=== PATIENT | male | born 1965 | race Caucasian/White ===

== ENCOUNTER → 2018-12-31 | Outpatient (CLI) | payer BC, MEDICARE ==
--- NOTE | 2018-12-31 13:58 | XR ---
EXAMINATION TYPE: XR knee complete RT DATE OF EXAM: 12/31/2018 COMPARISON: None HISTORY: Osteoarthritis, pain TECHNIQUE: Three-view right knee FINDINGS: Joint spaces are preserved. No acute fractures or dislocations are evident. No joint effusi on is evident. IMPRESSION: 1. Normal three-view right knee
== END | disposition home or self-care (01) ==
LOC: RADXRMAIN 13:00
PROVIDERS: ATTEND Family Medicine
DX: M17.11 Unilateral primary osteoarthritis, right knee (principal)

== ENCOUNTER 2019-05-25 07:21 | Inpatient (IN) | payer BC, MEDICARE ==
[2019-05-25 07:33] LABS: Glucose,Whole Blood 110 mg/dL (75-99)
--- NOTE | 2019-05-25 07:43 | ED ---
General Adult HPI - General Chief complaint: Neuro Symptoms/Deficit Stated complaint: Poss stroke Time Seen by Provider: 05/25/19 07:27 Source: patient, family, RN notes reviewed Mode of arrival: ambulatory Limitations: no limitations - History of Present Illness Initial comments: Patient is a pleasant 4-year-old male presenting to the emergency department with concerns for possible stroke. Onset of symptoms was sometime yesterday evening. Patient felt generally weak. Patient went to bed around 9 PM. Patient woke up at 6:15 and had expressive aphasia and right-sided facial droop. Patient was unable to walk to the bathroom. states right-sided facial droop has resolved. Patient and state that speech has improved however not completely returned to normal. Patient states he still feels somewhat generally weak. Does not notice weakness worse in any specific area. Patient does have history of previous stroke around 5 years ago with chronic right-sided deficits. Patient feels patient does feel slightly cloudy with his thought process. Patient does have known history of aneurysm that is not operable last evaluated around 5 years ago. - Related Data Home Medications Medication Instructions Recorded Confirmed Aspirin 81 mg PO DAILY 05/25/19 05/25/19 Atorvastatin [Lipitor] 40 mg PO HS 05/25/19 05/25/19 Cetirizine HCl [Zyrtec] 10 mg PO DAILY PRN 05/25/19 05/25/19 Memantine [Namenda] 5 mg PO HS 05/25/19 05/25/19 Allergies Allergy/AdvReac Type Severity Reaction Status Date / Time No Known Allergies Allergy Verified 05/25/19 08:34 Review of Systems ROS Statement: Those systems with pertinent positive or pertinent negative responses have been documented in the HPI. ROS Other: All systems not noted in ROS Statement are negative. Constitutional: Denies: fever Eyes: Denies: eye pain ENT: Denies: ear pain Respiratory: Denies: cough Cardiovascular: Denies: chest pain Endocrine: Denies: fatigue Gastrointestinal: Denies: abdominal pain Genitourinary: Denies: dysuria Musculoskeletal: Denies: back pain Skin: Denies: rash Neurological: Reports: as per HPI, weakness Past Medical History Past Medical History: CVA/TIA, Hyperlipidemia, Hypertension Additional Past Medical History / Comment(s): Hypertension and hypertensive cardiovascular disease, hyperlipidemia, chronic low back pain status post radio frequency ablation of the lumbar spine about a month ago, chronic tobacco use and dependence . History of Any Multi-Drug Resistant Organisms: None Reported Past Surgical History: Appendectomy, Hernia Repair, Orthopedic Surgery Additional Past Surgical History / Comment(s): "SPINAL BLOCK FROM A PRIOR BACK INJURY" HIP SURGERY, BILATERAL FOOT SURGERY, RIGHT ARM CRUSHED", bilateral femur surgery, epidural injection, radiofrequency ablation about a month ago. Past Anesthesia/Blood Transfusion Reactions: No Reported Reaction Past Psychological History: No Psychological Hx Reported Smoking Status: Current every day smoker Past Alcohol Use History: Occasional Past Drug Use History: None Reported - Past Family History Mother Family Medical History: Hypertension (Mother is 72-year-old has history of hypertension as well as hyperthyroidism), Thyroid Disorder Father Family Medical History: No Reported History (Father 75-year-old has no major m edical problems.) Brother(s) Family Medical History: No Reported History (3 brothers no major medical problems.) Sister(s) Family Medical History: No Reported History (3 sisters no major medical problems) Son(s) Family Medical History: No Reported History (Patient has 2 sons no major medical problems) Daughter(s) Family Medical History: No Reported History (1 daughter no major medical problems.) General Exam Limitations: no limitations General appearance: alert, in no apparent distress Head exam: Present: normocephalic Eye exam: Present: normal appearance, PERRL, EOMI. Absent: nystagmus ENT exam: Present: normal oropharynx Neck exam: Present: normal inspection Respiratory exam: Present: normal lung sounds bilaterally Cardiovascular Exam: Present: regular rate, normal rhythm GI/Abdominal exam: Present: soft. Absent: tenderness Extremities exam: Present: normal inspection Neurological exam: Present: alert, oriented X3, CN II-XII intact (Except for decreased sensation right side of the face) Expanded Neurological exam: Present: protecting the airway Speech: Present: expressive aphasia (Mild slurred speech) Cranial nerves: EOM's Intact: Normal, Facial Sensation: Abnormal Right Sensory exam: Upper Extremity Light Touch: Abnormal Right, Lower Extremity Light Touch: Abnormal Right Motor strength exam: RUE: 5, LUE: 5, RLE: 2/1, LLE: 5 Eye Response: (4) open spontaneously Motor Response: (6) obeys commands Verbal Response: (5) oriented Psychiatric exam: Present: normal affect, normal mood Skin exam: Present: normal color Course Vital Signs 05/25/19 07:29 Temperature 97.5 F L Pulse Rate 80 Respiratory 18 Rate Blood Pressure 159/107 O2 Sat by Pulse 92 L Oximetry - Reevaluation(s) Reevaluation #1: 05/25/19 07:40 Patient is not a TPA candidate secondary to onset of symptoms greater than 4.5 hours, in addition patient has improvement of symptoms. 05/25/19 07:[address] Boo who agrees patient is not a TPA candidate 05/25/19 08:43 Case was again discussed with Dr. Boo who did identify AVM CTA. He does recommend MRI with and without contrast as well as EEG and neurology evaluation. He will follow up with patient after he is discharged. Patient reevaluated. Patient and family updated. Case also discussed in detail with Dr. Short, who will admit his patient. EKG Findings - EKG Comments: EKG Findings:: Normal sinus rhythm 75. MT 144. QRS 88. QT 386. QTc 431. Normal axis. Normal QRS. No acute ST change. Medical Decision Making - Lab Data Result diagrams: 05/25/19 07:34 05/25/19 07:34 Lab Results 05/25/19 05/25/19 05/25/19 Range/Units 07:32 07:34 07:34 WBC 7.8 (3.8-10.6) k/uL RBC 5.35 (4.30-5.90) m/uL Hgb 15.8 (13.0-17.5) gm/dL Hct 47.9 (39.0-53.0) % MCV 89.5 (80.0-100.0) fL MCH 29.5 (25.0-35.0) pg MCHC 33.0 (31.0-37.0) g/dL RDW 12.3 (11.5-15.5) % Plt Count 246 (150-450) k/uL Neutrophils % 64 % Lymphocytes % 25 % Monocytes % 5 % Eosinophils % 3 % Basophils % 1 % Neutrophils # 5.0 (1.3-7.7) k/uL Lymphocytes # 1.9 (1.0-4.8) k/uL Monocytes # 0.4 (0-1.0) k/uL Eosinophils # 0.3 (0-0.7) k/uL Basophils # 0.1 (0-0.2) k/uL PT (9.0-12.0) sec INR (<1.2) APTT (22.0-30.0) sec Sodium 143 (137-145) mmol/L Potassium 4.3 (3.5-5.1) mmol/L Chloride 108 H (98-107) mmol/L Carbon Dioxide 26 (22-30) mmol/L Anion Gap 9 mmol/L BUN 18 (9-20) mg/dL Creatinine 0.92 (0.66-1.25) mg/dL Est GFR (CKD-EPI)AfAm >90 (>60 ml/min/1.73 sqM) Est GFR (CKD-EPI)NonAf >90 (>60 ml/min/1.73 sqM) Glucose 111 H (74-99) mg/dL POC Glucose (mg/dL) 110 H (75-99) mg/dL POC Glu Rn Lvn ID Roberto Lopez Calcium 9.4 (8.4-10.2) mg/dL Total Bilirubin 1.3 (0.2-1.3) mg/dL AST 22 (17-59) U/L ALT 19 (4-49) U/L Alkaline Phosphatase 72 (38-126) U/L Troponin I (0.000-0.034) ng/mL Total Protein 7.4 (6.3-8.2) g/dL Albumin 4.5 (3.5-5.0) g/dL 05/25/19 05/25/19 Range/Units 07:34 07:34 WBC (3.8-10.6) k/uL RBC (4.30-5.90) m/uL Hgb (13.0-17.5) gm/dL Hct (39.0-53.0) % MCV (80.0-100.0) fL MCH (25.0-35.0) pg MCHC (31.0-37.0) g/dL RDW (11.5-15.5) % Plt Count (150-450) k/uL Neutrophils % % Lymphocytes % % Monocytes % % Eosinophils % % Basophils % % Neutrophils # (1.3-7.7) k/uL Lymphocytes # (1.0-4.8) k/uL Monocytes # (0-1.0) k/uL Eosinophils # (0-0.7) k/uL Basophils # (0-0.2) k/uL PT 9.5 (9.0-12.0) sec INR 0.9 (<1.2) APTT 24.5 (22.0-30.0) sec Sodium (137-145) mmol/L Potassium (3.5-5.1) mmol/L Chloride (98-107) mmol/L Carbon Dioxide (22-30) mmol/L Anion Gap mmol/L BUN (9-20) mg/dL Creatinine (0.66-1.25) mg/dL Est GFR (CKD-EPI)AfAm (>60 ml/min/1.73 sqM) Est GFR (CKD-EPI)NonAf (>60 ml/min/1.73 sqM) Glucose (74-99) mg/dL POC Glucose (mg/dL) (75-99) mg/dL POC Glu Rn Lvn ID Calcium (8.4-10.2) mg/dL Total Bilirubin (0.2-1.3) mg/dL AST (17-59) U/L ALT (4-49) U/L Alkaline Phosphatase (38-126) U/L Troponin I <0.012 (0.000-0.034) ng/mL Total Protein (6.3-8.2) g/dL Albumin (3.5-5.0) g/dL - Radiology Data Radiology results: report reviewed (Computed tomography scan the brain shows no acute hemorrhage or shift. Atrophy and chronic small vessel ischemic changes. Age indeterminate left basal ganglia on infarct), image reviewed (Chest x-ray shows no acute process) Disposition Clinical Impression: Cerebrovascular accident (CVA) Disposition: ADMITTED IP TO THIS HOSP Is patient prescribed a controlled substance at d/c from ED?: No Referrals: Justice Short MD [Primary Care Provider] - 1-2 days Decision Time: 08:44
[2019-05-25 08:00] LABS: Basophils # (A) 0.1 k/uL (0-0.2); Basophils % (A) 1 %; Eosinophils # (A) 0.3 k/uL (0-0.7); Eosinophils % (A) 3 %; HCT 47.9 % (39.0-53.0); HGB 15.8 gm/dL (13.0-17.5); Lymphocytes # (A) 1.9 k/uL (1.0-4.8); Lymphocytes % (A) 25 %; MCH 29.5 pg (25.0-35.0); MCV 89.5 fL (80.0-100.0); Mean Platelet Volume 7.8; Monocytes # (A) 0.4 k/uL (0-1.0); Monocytes % (A) 5 %; Neutrophils % (A) 64 %; Platelet Count 246 k/uL (150-450); RBC 5.35 m/uL (4.30-5.90); RDW 12.3 % (11.5-15.5); WBC 7.8 k/uL (3.8-10.6)
[2019-05-25 08:08] LABS: INR 0.9 (<1.2); Partial Thromboplastin Time 24.5 sec (22.0-30.0); Prothrombin Time 9.5 sec (9.0-12.0)
[2019-05-25 08:16] LABS: ALT 19 U/L (4-49); AST 22 U/L (17-59); African American GFR (CKD) >90 (>60 ml/min/1.73 sqM); Albumin 4.5 g/dL (3.5-5.0); Alkaline Phosphatase 72 U/L (38-126); Anion Gap 9 mmol/L; Blood Urea Nitrogen 18 mg/dL (9-20); Calcium 9.4 mg/dL (8.4-10.2); Carbon Dioxide 26 mmol/L (22-30); Chloride 108 mmol/L (98-107); Glucose 111 mg/dL (74-99); Non-African American GFR(CKD) >90 (>60 ml/min/1.73 sqM); Potassium 4.3 mmol/L (3.5-5.1); Sodium 143 mmol/L (137-145); Total Bilirubin 1.3 mg/dL (0.2-1.3); Total Protein 7.4 g/dL (6.3-8.2)
--- NOTE | 2019-05-25 08:16 | XR ---
EXAMINATION TYPE: XR chest 2V DATE OF EXAM: 05/25/2019 COMPARISON: CT October 25, 2014 HISTORY: Altered mental status and weakness. TECHNIQUE: Frontal and lateral views of the chest are obtained. FINDINGS: There is no focal air space opacity, pleural effusion, or pneumothorax seen. The cardiac silhouette size is enlarged. The osseous structures are intact. IMPRESSION: Cardiomegaly without acute pulmonary process.
--- NOTE | 2019-05-25 08:16 | CT ---
EXAMINATION TYPE: CT brain wo con for TPA DATE OF EXAM: 05/25/2019 HISTORY: Possible stroke acute onset neuro deficit. Automated Exposure Control for Dose Reduction was Utilized. TECHNIQUE: CT scan of the head is performed without contrast. COMPARISON: 6 CT brain October 25, 2014 FINDINGS: There is no acute intracranial hemorrhage or midline shift identified. There is diffuse v entricular and sulcal prominence consistent with diffuse age-related cerebral atrophy. There is low- attenuation in the periventricular white matter consistent with chronic small vessel ischemic change. Bilateral basal ganglia calcifications are redemonstrated. Area of low attenuation left basal gangl ia involving coronal radiata is new from 2015 CT favoring chronic infarct giving new adjacent ex vacu o dilatation. Prominent large peripheral vessel high right frontal region axial images 32 through 42 is redemonstrated possible vascular anomaly or malformation. The globes are intact and the visualized sinuses are clear. IMPRESSION: No acute intracranial hemorrhage or midline shift. There is mild to moderate diffuse ce rebral atrophy and chronic small vessel ischemic change with age indeterminant left basal ganglia/cor shubham radiata infarct favored chronic in age but new from 2015 study
[2019-05-25] MEDS ORDERED: ASPIRIN 325 MG TAB PO STA (08:44)
[2019-05-25] MEDS ORDERED: SODIUM CHLORIDE 0.9% 1,000 ML IV SCH (08:45)
--- NOTE | 2019-05-25 08:53 | CT ---
EXAMINATION TYPE: CT angio head neck DATE OF EXAM: 05/25/2019 HISTORY: CODE STROKE acute onset neuro deficit. COMPARISON: NONE CT DLP: 1542 mGycm. Automated Exposure Control for Dose Reduction was Utilized. TECHNIQUE: CTA scan of the head and neck are performed without and with IV Contrast, patient injecte d with 100 ml mL of Isovue 370, axial images are obtained, coronal and sagittal reformatted images ar e reviewed. Three-D reconstructed images are created on an independent workstation and reviewed. FINDINGS: Carotid/Vascular Structures: Normal three-vessel origin from aortic arch. Right common carotid artery shows normal origin from right brachiocephalic artery. No significant plaque or stenosis right commo n or internal carotid arteries including a level carotid bulb. Similar finding in the left neck. [place] nt external carotid arteries bilaterally without significant plaque or stenosis. There is codominant vertebrobasilar system patent to basilar junction. Asymmetric diminished caliber to right posterior cerebral artery P2 segment but bilateral patent posterior communicating arteries a re thought present. No aneurysm. There is a patent anterior communicating artery image 108. There is no significant focal stenosis or aneurysmal change in the anterior circulation. Prominent large right anterior extra-axial vessel rede monstrated right frontal region superiorly. Patent draining veins noted. Other: Some reversal of normal cervical curvature. Diffuse groundglass opacity bilateral upper lungs could reflect mild bilateral alveolar edema. IMPRESSION: 1. No significant stenosis in the common or internal carotid arteries bilaterally. 2. No aneurysmal change at the level of the [place].
[2019-05-25] MEDS ORDERED: LORATADINE 10 MG TAB PO PRN (12:40)
--- NOTE | 2019-05-25 13:48 | HP ---
HISTORY AND PHYSICAL This is a 54-year-old white male admitted to emergency room with possible stroke sometime yesterday evening. He states that he had a right side facial droop, expressive aphasia this morning at 6:15 in the morning. He did have some weakness in his right arm, right leg last night and he states his facial droop is improving today as well as right leg weakness. He is able to move his leg a little bit today and his right arm did not have much weakness yesterday, but he has chronic right-sided deficits. He does feel slightly cloudy and hard getting thoughts out. He does have known history of aneurysm, but CT of the head did not show any aneurysm today. HOME MEDICINES: He takes: 1. Lipitor 40 daily. 2. Aspirin 81 mg daily. 3. Zyrtec 10 mg daily. 4. Namenda 5 mg daily. ALLERGIES: No known drug allergies. PAST MEDICAL HISTORY: CVA, TIA, dyslipidemia, hypertension, hypertensive cardiovascular disease, dyslipidemia, chronic lumbar back pain with ablation of his lumbar spine a month ago, chronic nicotine user with dependence on nicotine. Denies any alcohol or drug use. SURGERIES: Appendectomy, hernia repair, orthopedic surgery, right arm crushed, hip surgery, bilateral foot surgery, spinal block for prior back injury. SOCIAL HISTORY: Current everyday smoker. No alcohol. No drugs as mentioned above. FAMILY HISTORY: Mother with hypertension, hypothyroidism. Father is negative. One daughter, no problems. Sisters are healthy. REVIEW OF SYSTEMS: Fourteen-point review of systems negative except for mentioned in HPI. PHYSICAL EXAMINATION: Vital signs are reviewed. He is alert and is in no acute distress. Appears to me has some mild facial drooping on the left side. Minimal at this time. Four out of five strength in the left arm and left leg. Right arm is 3-1/2 out of 5, right leg is 2-1/2 out of 5. Speech slightly slurred. Sensory is decreased a little bit on the right arm, right leg. LUNGS: Clear. CARDIOVASCULAR: S1, S2. HEMATOLOGY: Negative Homans. VITAL SIGNS: Temperature 97.5, pulse rate is 70 to 80, respiratory rate 18 to 20, blood pressure on admission was 159/107, O2 saturation 92. The patient was not a tPA candidate after having the symptoms for 24 hours prior to coming in. They did order AVM CTA. Recommend a EEG, Neurology consult and MRI with and without contrast. Wait for Neurology and Cardiology consult. EKG shows sinus rhythm. CAT scan of the brain shows possibly an old stroke in the [place] radiata and basal ganglia area. White count is normal. Hemoglobin is normal. Negative troponin. Glucose 111. GFR is greater than 90. No acute hemorrhage on CAT scan. ASSESSMENT: 1. Cerebrovascular accident, unclear etiology. 2. History of some memory loss from possibly a prior cerebrovascular accident. 3. He has allergic rhinitis. 4. He has dyslipidemia. 5. Nicotine addiction, which could be a common source. Will rule out any other causes. Do an echo. Await Cardiology and Neurology consult, PT, OT. MMODL / IJN: [id number] /
--- NOTE | 2019-05-25 14:51 | EEG ---
ELECTROENCEPHALOGRAM REPORT PROCEDURE DATE: 05/25/2019 ELECTROENCEPHALOGRAM (EEG) REPORT: TECHNIQUE: A routine 18 channel EEG was performed with video using the 10/20 international electrode placement system. HISTORY: The patient presented with symptoms that started yesterday afternoon/evening. Patient awoke this morning with expressive aphasia and a right-sided facial droop. CURRENT MEDICATIONS: Aspirin, Lipitor. STUDY DURATION: 25 minutes. FINDINGS: BACKGROUND: The background activity consisted of 8 to 9 Hz rhythmic waveforms symmetrically distributed through both posterior quadrants. ACTIVATION: Hyperventilation: Not performed. Photic stimulation: Mild symmetric driving seen. Sleep: Stages I and II sleep noted. ABNORMALITIES: 1. Occasional focal left frontotemporal theta range slowing was seen. 2. On rare occasion, low voltage sharp waves were seen over the left frontotemporal region with equipotentiality at F7-T3, these had a varying appearance and were not definitively epileptiform in nature. IMPRESSION: Abnormal EEG. The focal theta range slowing seen over the left frontotemporal region is not epileptiform in nature. As mentioned, sharp morphology waveforms were seen on rare occasion over the same region were not definitively epileptiform in nature. CONCLUSION: These findings indicate mild focal cerebral dysfunction of the left frontotemporal region. An epileptiform focus involving the corresponding region cannot necessarily be excluded. Clinical correlation is recommended. No seizures were recorded. MMODL / IJN: [id number] /
--- NOTE | 2019-05-25 16:26 | MR ---
EXAMINATION TYPE: MR brain wo/w con DATE OF EXAM: 05/25/2019 COMPARISON: CT brain earlier today. Older CT 2015. HISTORY: Rt side weakness TECHNIQUE: Multiplanar, multisequence images of the brain and brainstem is performed without and with IV contras t, utilizing 7 mL intravenous Gadavist . FINDINGS: Diffusion weighted images roughly 11 x 6 mm area of increased signal on diffusion weighted images with diminished signal ADC mapping shows subtle T2 hyperintensity and T1 hypointensity involvi ng the right lateral aspect of the thalamus seen best image 136 series 305 without suspicious enhance ment consistent with evolving acute infarct. There is no worrisome extra-axial fluid collection. Diff use ventricular and sulcal prominence is redemonstrated. Areas of T2 hyperintensity throughout the de ep and periventricular white matter again seen with old infarct left coronal radiata redemonstrated n ear axial image 18. Midline structures demonstrate normal morphology. The craniocervical junction appears within normal limits. Post contrast images demonstrate no abnormal enhancement. Prominent high right frontal drain ing vessel likely reflects venous angioma unchanged from 2015 study presumed incidental. The dural ve nous sinuses appear patent. The visualized sinuses are clear and the globes are intact. IMPRESSION: 1. Evolving acute infarct lateral aspect right thalamus. 2. Background mild diffuse cerebral atrophy and moderate chronic small vessel ischemic change with ol d left coronal radiata infarct now identified. A Yellow level critical message alert has been initiated for Tevin Arnold DO via the [employer] Critical Results System on 05/25/2019 4:24 PM. This message alert has been sent to Tevin Arnold DO vi a the preferences provided by the clinician for the receipt of Radiology Critical Findings. Message I [id number].
--- NOTE | 2019-05-25 17:49 | ECHOF ---
Referral Reason:Thrombus MEASUREMENTS -------- HEIGHT: 175.3 cm WEIGHT: 73.5 kg BP: 159/107 RVIDd: 3.4 cm (< 3.3) IVSd: 1.0 cm (0.6 - 1.1) LVIDd: 4.4 cm (3.9 - 5.3) LVPWd: 1.0 cm (0.6 - 1.1) IVSs: 1.6 cm LVIDs: 2.4 cm LVPWs: 1.6 cm LA Diam: 3.1 cm (2.7 - 3.8) LAESV Index (A-L): 17.89 ml/m Ao Diam: 2.7 cm (2.0 - 3.7) AV Cusp: 2.0 cm (1.5 - 2.6) MV EXCURSION: 14.664 mm (> 18.000) MV EF SLOPE: 103 mm/s (70 - 150) EPSS: 0.3 cm MV E Hieu: 1.13 m/s MV DecT: 198 ms MV A Hieu: 0.81 m/s MV E/A Ratio: 1.39 RAP: 5.00 mmHg RVSP: 22.99 mmHg TAPSE: 23.99 mm FINDINGS -------- Sinus rhythm. This was a technically adequate study. The left ventricular size is normal. Left ventricular wall thickness is normal. Overall left vent ricular systolic function is normal with, an EF between 55 - 60 %. The right ventricle is mildly enlarged. Normal LA size by volume 22+/-6 ml/m2. The right atrial size is normal. Interatrial and interventricular septum intact. The aortic valve is trileaflet and appears structurally normal. Trace amount of aortic regurgitatio n. The mitral valve is normal. There is trace to mild mitral regurgitation. Mild tricuspid regurgitation present. Right ventricular systolic pressure is normal at < 35 mmHg. There is no pulmonic regurgitation present. The aortic root size is normal. Normal inferior vena cava with normal inspiratory collapse consistent with estimated right atrial pre ssure of 5 mmHg. There is no pericardial effusion. CONCLUSIONS -------- 1. Sinus rhythm. 2. This was a technically adequate study. 3. The left ventricular size is normal. 4. Left ventricular wall thickness is normal. 5. Overall left ventricular systolic function is normal with, an EF between 55 - 60 %. 6. The right ventricle is mildly enlarged. 7. Normal LA size by volume 22+/-6 ml/m2. 8. The aortic valve is trileaflet and appears structurally normal. 9. Trace amount of aortic regurgitation. 10. There is trace to mild mitral regurgitation. 11. Mild tricuspid regurgitation present. 12. Right ventricular systolic pressure is normal at < 35 mmHg. 13. There is no pulmonic regurgitation present. 14. The aortic root size is normal. 15. There is no pericardial effusion. INTERACTIVE ART DIRECTOR: Candida Rose RDCS
[2019-05-25 19:23] VITALS: RESP 20; TEMP 98.7
[2019-05-25] MEDS ORDERED: ATORVASTATIN 40 MG TAB PO SCH (21:00)
[2019-05-25 21:35] VITALS: BP 113/95; PULSE 79
[2019-05-26] MEDS ORDERED: ASPIRIN 325 MG TAB PO SCH (08:45)
== END 2019-05-25 22:54 | disposition short-term general hospital (02) | DRG 66 ==
LOC: EC 07:21 → 3SCARD 08:44
PROVIDERS: ADMIT Family Medicine; ATTEND Family Medicine
DX: I63.9 Cerebral infarction, unspecified (principal); R47.01 Aphasia; I11.9 Hypertensive heart disease without heart failure; R29.810 Facial weakness; R40.2362 Coma scale, best motor response, obeys commands, at arrival to emergency department; R40.2252 Coma scale, best verbal response, oriented, at arrival to emergency department; R40.2142 Coma scale, eyes open, spontaneous, at arrival to emergency department; R29.705 NIHSS score 5; I69.311 Memory deficit following cerebral infarction; E78.5 Hyperlipidemia, unspecified; J30.9 Allergic rhinitis, unspecified; G89.29 Other chronic pain; M54.5 Low back pain; R26.2 Difficulty in walking, not elsewhere classified; F17.200 Nicotine dependence, unspecified, uncomplicated; Z71.6 Tobacco abuse counseling; Z79.82 Long term (current) use of aspirin; Z79.899 Other long term (current) drug therapy; Z90.49 Acquired absence of other specified parts of digestive tract; Z87.828 Personal history of other (healed) physical injury and trauma; Z98.890 Other specified postprocedural states; Z82.49 Family history of ischemic heart disease and other diseases of the circulatory system; Z83.49 Family history of other endocrine, nutritional and metabolic diseases
CPT/HCPCS: 36415; 70450; 70496; 70498; 70553; 71046; 80053; 84484; 85025; 85610; 85730; 86140; 93005; 93306; 95819; 96360; 96361; 99285

== ENCOUNTER 2019-06-09 06:23 | Day surgery (SDC) | payer BC, MEDICARE ==
[2019-06-05 15:44] VITALS: BMI 23.9
[~2019-06-09 06:23] MED LIST: SODIUM CHLORIDE 0.9% 1,000 ML IV SCH
[2019-06-09] MEDS ORDERED: SODIUM CHLORIDE 0.9% 500 ML 500 ML IV ONE (07:06)
[2019-06-09 07:09] VITALS: RESP 16; TEMP 98.6
[2019-06-09] MEDS ORDERED: LIDOCAINE 1% INJ 10MG/ML (20 ML MDV) ONE (07:31)
[2019-06-09] MEDS ORDERED: fentaNYL (PF) 50 MCG/ML 2 ML AMP ONE (07:47)
[2019-06-09] MEDS: MIDAZOLAM 2 MG/2 ML VIAL IV ONE ×2 (07:47→07:53)
[2019-06-09] MEDS ORDERED: fentaNYL (PF) 50 MCG/ML 2 ML AMP IV ONE (07:50)
[2019-06-09] MEDS ORDERED: LIDOCAINE 1% INJ 10MG/ML (20 ML MDV) SQ ONE (07:50)
[2019-06-09] MEDS ORDERED: ACETAMINOPHEN TAB 325 MG TAB PO PRN (08:26)
--- NOTE | 2019-06-09 08:31 | P.PCN ---
Date of Procedure: 06/09/19 Preoperative Diagnosis: Cryptogenic stroke Postoperative Diagnosis: Same Procedure(s) Performed: Insertion of the loop recorder Description of Procedure: Patient was brought to the lab in a fasting state. He was prepped and draped in the usual fashion. Patient was given IV sedation with 2 mg of Versed and 50 g of fentanyl. Patient was given prophylactic antibiotics, IV. The skin and the fourth intercostal space on the left side was infiltrated with lidocaine. An incision was made in the standard fashion and the loop recorder was inserted without difficulty. Patient tolerated the procedure well. Programming: This IS sensitive to be about 0.4-0.5 mV. The bradycardia detection is programmed to a rate of 30 and tachyarrhythmia detection is programmed to 175. Atrial fibrillation detection is on the Plan: Patient will be monitored for the next couple of hours. If stable patient will be discharged home. Follow-up in the office in one week
[2019-06-09 09:55] VITALS: BP 118/67; PULSE 66
== END 2019-06-09 09:01 | disposition home or self-care (01) ==
LOC: CATHEP 06:23
PROVIDERS: ATTEND Internal Medicine Cardiovascular Disease
DX: I63.9 Cerebral infarction, unspecified (principal); E78.00 Pure hypercholesterolemia, unspecified; I10 Essential (primary) hypertension; E78.5 Hyperlipidemia, unspecified; F17.210 Nicotine dependence, cigarettes, uncomplicated; Z86.73 Personal history of transient ischemic attack (TIA), and cerebral infarction without residual deficits; Z79.82 Long term (current) use of aspirin; Z79.899 Other long term (current) drug therapy
CPT/HCPCS: 33285; C1764; J2250; J0690; J2001; J3010

== ENCOUNTER 2019-09-12 10:03 | Observation (INO) | payer BC, MEDICARE ==
[2019-09-12 10:09] VITALS: RESP 18
--- NOTE | 2019-09-12 10:45 | XR ---
EXAMINATION TYPE: XR chest 1V portable DATE OF EXAM: 09/12/2019 HISTORY: chest pain. REFERENCE: Previous study dated 05/25/2019. FINDINGS: Heart size upper limits of normal. The lungs are clear. Pleural space are clear. IMPRESSION: MILD CARDIOMEGALY.
--- NOTE | 2019-09-12 10:56 | ED ---
Chest Pain HPI <Andrés Bae - Last Filed: 09/12/19 12:54> - General Source: patient, RN notes reviewed, old records reviewed, Caregiver Mode of arrival: wheelchair Limitations: no limitations <Leonor Magallanes - Last Filed: 09/12/19 13:01> - General Chief Complaint: Chest Pain Stated Complaint: Chest pain Time Seen by Provider: 09/12/19 10:10 - History of Present Illness Initial Comments: Patient is a 54-year-old male who presents emergency department today with onset of chest pain at 9am, he reports a minor cough and stated he felt warm and had a low grade fever of 99. He states he was 2 out of 10. He has a history of previous strokes. He is on daily aspirin. He denies any severe difficulty in breathing. He denies any nausea or abdominal pain. (Leonor Magallanes) - Related Data Home Medications Medication Instructions Recorded Confirmed Aspirin 81 mg PO DAILY 05/25/19 06/09/19 Cetirizine HCl [Zyrtec] 10 mg PO DAILY PRN 05/25/19 06/09/19 Atorvastatin [Lipitor] 80 mg PO HS 06/05/19 06/09/19 Memantine [Namenda] 10 mg PO HS 06/05/19 06/09/19 Previous Rx's Medication Instructions Recorded Cephalexin [Keflex] 500 mg PO Q8HR #10 cap 06/09/19 Allergies Allergy/AdvReac Type Severity Reaction Status Date / Time No Known Allergies Allergy Verified 09/12/19 10:08 Review of Systems ROS Other: All systems not noted in ROS Statement are negative. <Andrés Bae - Last Filed: 09/12/19 12:54> ROS Other: All systems not noted in ROS Statement are negative. <Leonor Magallanes - Last Filed: 09/12/19 13:01> ROS Statement: Those systems with pertinent positive or pertinent negative responses have been documented in the HPI. EKG Findings - EKG Comments: EKG Findings:: EKG performed at 1017 shows normal sinus rhythm normal EKG. Ventricular rate of 81 bpm. Verbal is 144 ms. QRS ration is 84 ms. 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 Has home care. History of Any Multi-Drug Resistant Organisms: None Reported Past Surgical History: Appendectomy, Back Surgery, Hernia Repair, Orthopedic Surgery Additional Past Surgical History / Comment(s): Multiple inguinal hernia repairs/R orchiectomy, low back radiofrequency ablation/epidural injections, L femur surgery and bilateral foot surgery for arch problem and pigeon toe ., R arm crush injury with extensive reconstruction. Past Anesthesia/Blood Transfusion Reactions: No Reported Reaction Past Psychological History: Anxiety Smoking Status: Former smoker Past Alcohol Use History: Rare Past Drug Use History: None Reported - Past Family History Mother Family Medical History: Coronary Artery Disease (CAD), Hypertension, Thyroid Disorder Additional Family Medical History / Comment(s): She has had 3 vessel CABG Father Family Medical History: No Reported History Additional Family Medical History / Comment(s): . Brother(s) Family Medical History: No Reported History Sister(s) Family Medical History: No Reported History Son(s) Family Medical History: No Reported History Daughter(s) Family Medical History: No Reported History <Leonor Magallanes - Last Filed: 09/12/19 13:01> General Exam Limitations: no limitations General appearance: alert, in no apparent distress Head exam: Present: atraumatic, normocephalic, normal inspection Eye exam: Present: normal appearance, PERRL, EOMI. Absent: scleral icterus, conjunctival injection, periorbital swelling ENT exam: Present: normal exam, normal oropharynx, mucous membranes moist, TM's normal bilaterally Neck exam: Present: normal inspection. Absent: tenderness, meningismus, lymphadenopathy Respiratory exam: Present: normal lung sounds bilaterally. Absent: respiratory distress, wheezes, rales, rhonchi, stridor Cardiovascular Exam: Present: regular rate, normal rhythm, normal heart sounds. Absent: systolic murmur, diastolic murmur, rubs, gallop, clicks GI/Abdominal exam: Present: soft, normal bowel sounds. Absent: distended, tenderness, guarding, rebound, rigid Extremities exam: Present: normal inspection, full ROM, normal capillary refill. Absent: tenderness, pedal edema, joint swelling, calf tenderness Back exam: Present: normal inspection Neurological exam: Present: alert, oriented X3, CN II-XII intact Psychiatric exam: Present: normal affect, normal mood Skin exam: Present: warm, dry, intact, normal color. Absent: rash <Leonor Magallanes - Last Filed: 09/12/19 13:01> - General Exam Comments Initial Comments: Pleasant 54-year-old male. No distress. (Leonor Magallanes) Course <Andrés Bae - Last Filed: 09/12/19 12:54> Vital Signs 09/12/19 09/12/19 10:06 12:01 Temperature 98.7 F Pulse Rate 88 75 Respiratory 18 18 Rate Blood Pressure 156/97 174/108 O2 Sat by Pulse 95 97 Oximetry - Reevaluation(s) Reevaluation #1: 09/12/19 12:54 PA supervision: I did personally evaluate this case patient did present with complaints of chest pain initial cardiac workup is negative though the presentation is suspicious for a cardiac origin. Patient will be admitted the case is to be discussed with Dr. Short (Andrés Bae) Chest Pain [facility] <Leonor Magallanes - Last Filed: 09/12/19 13:01> - [facility] Patient is a 54-year-old male, presents emergency with chest pain starting at 9 AM when he woke up today. Patient states that minor cough and low-grade temp was concerned initially for COVID. This time Patient has no difficulty breathing. Oxygen sats have been normal. He has been hypertensive on emergency department. He does have history of 2 previous strokes, no acutre neurodeficits. He states this chest pain is not reproducible feels like a load dull aching chest pain and rates it a 2 out of 10. He did have an elevated d- dimer. CT chest angiogram was completed, negative for PE. At this time Patient is was discussed with Dr. Bae. Discussed with concern for hypertension and on her initial chest pain and normal CT this concern for ACS presentation. Patient will be admitted for repeat troponin, and Dr. Bae discussed case with Dr. Garcia. CT is negative for pulmonary embolus. Borderline cardiomegaly. A stable lesion in the posterior segment of the right lower lobe of the liver likely representing hemangioma. Discussed informed of ultrasound. (Leonor Magallanes) Disposition <Andrés Bae - Last Filed: 09/12/19 12:54> Is patient prescribed a controlled substance at d/c from ED?: No Time of Disposition: 13:01 <Leonor Magallanes - Last Filed: 09/12/19 13:01> Clinical Impression: Chest pain Disposition: ADMITTED IP TO THIS HOSP Condition: Stable Referrals: Justice Short MD [Primary Care Provider] - 1-2 days
[2019-09-12 11:09] LABS: ALT 27 U/L (4-49); AST 23 U/L (17-59); African American GFR (CKD) >90 (>60 ml/min/1.73 sqM); Albumin 4.5 g/dL (3.5-5.0); Alkaline Phosphatase 70 U/L (38-126); Anion Gap 8 mmol/L; Basophils # (A) 0.1 k/uL (0-0.2); Basophils % (A) 1 %; Blood Urea Nitrogen 15 mg/dL (9-20); Calcium 9.1 mg/dL (8.4-10.2); Carbon Dioxide 26 mmol/L (22-30); Chloride 106 mmol/L (98-107); Eosinophils # (A) 0.2 k/uL (0-0.7); Eosinophils % (A) 3 %; Glucose 110 mg/dL (74-99); HCT 47.2 % (39.0-53.0); HGB 15.6 gm/dL (13.0-17.5); Lymphocytes # (A) 2.3 k/uL (1.0-4.8); Lymphocytes % (A) 28 %; MCH 30.3 pg (25.0-35.0); MCHC 33.2 g/dL (31.0-37.0); MCV 91.3 fL (80.0-100.0); Magnesium 2.2 mg/dL (1.6-2.3); Mean Platelet Volume 8.3; Monocytes # (A) 0.4 k/uL (0-1.0); Monocytes % (A) 5 %; Neutrophils # (A) 4.9 k/uL (1.3-7.7); Neutrophils % (A) 60 %; Non-African American GFR(CKD) >90 (>60 ml/min/1.73 sqM); Platelet Count 248 k/uL (150-450); Potassium 4.3 mmol/L (3.5-5.1); RBC 5.16 m/uL (4.30-5.90); RDW 12.8 % (11.5-15.5); Sodium 140 mmol/L (137-145); Total Bilirubin 1.3 mg/dL (0.2-1.3); Total Protein 7.5 g/dL (6.3-8.2); WBC 8.1 k/uL (3.8-10.6)
[2019-09-12 11:23] LABS: INR 0.9 (<1.2); Partial Thromboplastin Time 24.1 sec (22.0-30.0); Prothrombin Time 9.5 sec (9.0-12.0)
[2019-09-12 11:27] LABS: D-Dimer 2.31 mg/L FEU (<0.60)
[2019-09-12] MEDS ORDERED: SODIUM CHLORIDE 0.9% 1,000 ML IV ONE (11:29)
[2019-09-12] MEDS: SODIUM CHLORIDE 0.9% 1,000 ML IV SCH ×2 (11:59→21:04)
--- NOTE | 2019-09-12 12:14 | CT ---
EXAMINATION TYPE: CT chest angio for PE DATE OF EXAM: 09/12/2019 COMPARISON: Previous study dated 10/25/2014. HISTORY: Elevated d-dimer CT DLP: 262.7 mGycm Automated exposure control for dose reduction was used. CONTRAST: CT Chest for pulmonary embolism performed with without and with IV Contrast, patient injected with 10 0 ml mL of Isovue 370. FINDINGS: There is dependent atelectasis in the dependent portions of the lungs. There are nonpathologically enlarged lymph nodes within both axilla. The esophagus is mildly distende d and there is debris within the upper esophagus. There is no evidence of pulmonary embolus. The aorta is normal in caliber without evidence of dissection. Heart size is upper limits of normal. There is no pleural or pericardial fluid. There is a 2.2 cm lesion in the posterior segment of the right lobe of the liver which shows the begi nning of peripheral fill-in. This was present previously and likely represents a hemangioma. Visualized portions of the upper abdomen are otherwise normal. IMPRESSION: 1. This examination is negative for pulmonary embolus. 2. Borderline cardiomegaly. 3. Stable lesion in the posterior segment of the right lobe of the liver, likely representing a heman gioma. This could BE confirmed with ultrasound.
[2019-09-12] MEDS ORDERED: NITROGLYCERIN SL TABS 0.4 MG TAB SUBLINGUAL PRN (13:01)
[2019-09-12] MEDS ORDERED: LORATADINE 10 MG TAB PO PRN (13:03)
[2019-09-12] MEDS: AZITHROMYCIN 500 MG in SODIUM CHLORIDE 0.9% 250 ML IVPB SCH (17:54)
--- NOTE | 2019-09-12 19:28 | HP ---
HISTORY AND PHYSICAL This 54-year-old white male presents emergency room with some chest pain at 9:00 am. He had a minor cough, a warm low-grade fever 99. He has history of previous strokes. He takes daily aspirin. He was admitted for atypical chest pain and shortness of breath, unclear etiology. HOME MEDS: Include aspirin 81 mg daily, Zyrtec 10 mg daily. Lipitor 80 daily, Namenda 10 daily. ALLERGIES: Negative. REVIEW OF SYSTEMS: Fourteen-point review of systems negative except for mentioned in HPI. EKG sinus rhythm, no ischemia. PAST MEDICAL HISTORY: Chest pain, angina, CVA, TIA, dyslipidemia, hypertension, memory impairment, vascular disorder, CVA in 2014 and 05/25/2019, increasing weakness in the right arm and leg, numbness and tingling, difficulty walking, needs assistance with a walker, a little aphasia. can understands his speech, memory impairment, basal ganglia, brain aneurysm, which is inoperable, low back compression fractures, history of bronchitis. SURGERIES: Appendectomy, back surgery, hernia repair, orthopedic surgery and inguinal hernia repairs, orchiotomy, radiofrequency ablations, lumbar spine. PSYCH HISTORY: Anxiety. SOCIAL HISTORY: Former smoker. FAMILY HISTORY: Mother coronary artery disease, hypertension, hypothyroidism, CABG surgery. Father negative. PHYSICAL EXAM: HEENT normal within normal limits. CONSTITUTIONAL: Looks in no acute distress. CARDIOVASCULAR S1, S2 without any murmurs, rubs, or gallops. LUNGS are mild wheeze. Minimal rhonchi. No rales. GI soft, nontender. No mass. No organomegaly. EXTREMITIES: Some weakness on the right side as mentioned above. PSYCH fair mood and affect. SKIN: Warm, dry. NEUROLOGIC: Cranial nerves are intact. VITAL SIGNS: Temp 98.7, pulse 75-88, respiratory 16-18, blood pressure 156 to 174 over 97 to 108, O2 95 to 97. Vital signs reviewed. ASSESSMENT AND PLAN: 1. Acute coronary syndrome. 2. Covid was ruled out. 3. Coronary artery disease. 4. Hypertension acceleration. 5. Prior strokes. 6. 2 out of 10 chest pain. 7. Elevated D-dimer. 8. CTA of the chest negative for Pulmonary embolism. 9. Hypertension acceleration. 10.Atypical chest pain. 11.Get cardiology to see him. 12.Repeat troponins. 13.Hemangiomas of the liver. 14.Please see further orders. MMODL / IJN: [id number] /
[2019-09-12] MEDS: ATORVASTATIN 80 MG TAB PO SCH (21:03)
[2019-09-12] MEDS: MEMANTINE 10 MG TAB PO SCH (21:03)
[2019-09-13 03:11] LABS: Cholesterol 229 mg/dL (<200); HDL Cholesterol 34 mg/dL (40-60); LDL Cholesterol,Calculated 125 mg/dL (0-99); Triglycerides 348 mg/dL (<150)
[2019-09-13] MEDS: SODIUM CHLORIDE 0.9% 1,000 ML IV SCH ×2 (06:20→20:24)
[2019-09-13] MEDS: METOPROLOL TARTRATE 12.5 MG TAB PO SCH ×2 (08:59→20:22)
[2019-09-13] MEDS ORDERED: ASPIRIN 325 MG TAB PO SCH (09:00)
[2019-09-13] MEDS: ASPIRIN 81 MG PO SCH (09:00)
[2019-09-13] MEDS: AZITHROMYCIN 500 MG in SODIUM CHLORIDE 0.9% 250 ML IVPB SCH (09:00)
--- NOTE | 2019-09-13 09:18 | CONS ---
CONSULTATION This is a gentleman with a history of a cryptogenic stroke and hyperlipidemia. He apparently had a loop recorder sometime in May of this year. He came into the hospital with complaints of having some discomfort in his chest, sharp in nature associated with some cough and there was a question of low-grade fever. He did not have any palpitations syncope or near syncope. With these symptoms, he came into the hospital. He is quite anxious. His discomfort in the chest has resolved. His troponin levels are all unremarkable. His LDL cholesterol is still elevated at 125. He had a barakat virus test which was negative. He is comfortable at this time. His D- dimer was elevated. He went on to have a CT angiography which did not reveal any pulmonary embolism. At the time of my evaluation, he is resting comfortably. PAST MEDICAL HISTORY: Past medical history is remarkable for a cryptogenic stroke and he had a loop recorder placed sometime in May. He also has history of hypertension, hyperlipidemia, memory impairment. He had previous back surgery, hernia repair and some orthopedic surgery. MEDICATIONS: At home include: Atorvastatin 40 mg daily, aspirin 81 mg daily. Namenda and albuterol inhaler. ALLERGIES: None. PHYSICAL EXAMINATION: Blood pressure is 140/70, pulse rate is 70 per minute and regular. HEENT: Unremarkable. Fundus was not examined by me. Neck is supple. There is no JVD. I do not hear a carotid bruit. Heart exam reveals S1, S2 heard normally. Lungs are clear. Abdomen is soft, nontender. Lower extremities reveal palpable pulses. No edema. Central nervous system is grossly normal with some generalized weakness on the left side. EKG revealed sinus mechanism, no acute changes. LABORATORY DATA: Laboratory data revealed unremarkable troponins. IMPRESSION: 1. Chest pain syndrome seems atypical with moderate risk factor profile. 2. History of cerebrovascular accident with a loop recorder for cryptogenic stroke. 3. History of hyperlipidemia. RECOMMENDATIONS: I am recommending that we will perform a dobutamine echo in the morning and if this is normal, patient can be discharged. I will place him on metoprolol tartrate 12.5 mg b.i.d. and his aspirin will be reduced to 81 mg daily and his atorvastatin will be resumed. If the stress test is normal, patient can be discharged. Echocardiogram has also been advised. I discussed my thoughts in detail with the patient. Thank you very much for the consult. MMODL / IJN: [id number] /
[2019-09-13 13:18] VITALS: BMI 16.9
[2019-09-13] MEDS: MEMANTINE 10 MG TAB PO SCH (20:22)
[2019-09-13] MEDS: ATORVASTATIN 80 MG TAB PO SCH (20:22)
--- NOTE | 2019-09-13 23:30 | PN ---
PROGRESS NOTE A 54-year-old white male with chest pain. Cardiology wants a dobutamine stress test done tomorrow prior to discharge. His cough, congestion, upper respiratory infection are improving with Z-Jerome and Medrol Dosepak. CARDIOVASCULAR: S1, S2. LUNGS: Transmitted upper airway sounds. GI: Soft. HEMATOLOGY: Negative Homans. ASSESSMENT: Atypical chest pain. Dobutamine stress test in the morning. Continue on Z-Jerome, azithromycin and Medrol Dosepak. Continue next 24 to 48 hours. MMODL / IJN: [id number] /
[2019-09-14] MEDS: SODIUM CHLORIDE 0.9% 1,000 ML IV SCH (06:07)
[2019-09-14] MEDS ORDERED: DOBUTamine DRIP for NUC MED 500 MG in DEXTROSE/WATER 1 250ML.BAG IV ONE (08:00)
[2019-09-14] MEDS ORDERED: ATROPINE SULFATE 0.1 MG/ML 10ML SYRINGE ONE (09:55)
[2019-09-14] MEDS: TERBUTALINE FOR EXTRAVASATION 1 MG/ML VIAL SQ STA ×2 (10:32→10:39)
[2019-09-14] MEDS: METOPROLOL TARTRATE 12.5 MG TAB PO SCH (10:39)
[2019-09-14] MEDS: AZITHROMYCIN 500 MG in SODIUM CHLORIDE 0.9% 250 ML IVPB SCH (10:39)
[2019-09-14] MEDS: ASPIRIN 81 MG PO SCH (10:39)
--- NOTE | 2019-09-14 10:52 | PN ---
PROGRESS NOTE Mr. Sykes is a 54-year-old male with a history of hyperlipidemia, who presented with symptoms of chest discomfort. He was evaluated by Dr. Banda. His lab data revealed no evidence of myocardial infarction. He has a prior history of cerebrovascular accident. He underwent a dobutamine stress echocardiogram today. The reports are pending. There was some IV issue during dobutamine infusion with some swelling in the left arm. He continues to be otherwise on aspirin once a day, Lipitor 80 mg daily, metoprolol tartrate 12.5 g twice a day, Namenda. PHYSICAL EXAMINATION: Blood pressure 140/80 with a heart rate in the 60s. LUNGS: Clear. HEART: Regular rate and rhythm, S1, S2. No S3. No rub. ABDOMEN: Soft, nontender. EXTREMITIES: No edema. IMPRESSION: 1. Symptoms of chest discomfort. No clear evidence of myocardial infarction. 2. Hyperlipidemia. 3. History of cerebrovascular accident. RECOMMENDATION: The patient underwent a dobutamine stress echocardiogram today. Will await the results. If there is no evidence of ischemia. No further cardiac workup will be needed. MMODL / IJN: [id number] /
[2019-09-14] MEDS ORDERED: AZITHROMYCIN 500 MG TAB PO SCH (11:00)
[2019-09-14] MEDS ORDERED: TERBUTALINE FOR EXTRAVASATION 1 MG/ML VIAL SQ ONE (12:00)
--- NOTE | 2019-09-14 12:25 | ECHOS ---
STRESS ECHOCARDIOGRAM INDICATIONS: Chest pain. MEDICATIONS: Atorvastatin, aspirin 81 mg, Namenda, Albuterol. BASELINE HEART RATE: 73 BASELINE BLOOD PRESSURE: 159/101 MAXIMUM HEART RATE: 135 MAXIMUM BLOOD PRESSURE: 205/90 85% MPHR: 140 100% MPHR: 165 MAXIMUM STAGE REACHED: 4 TOTAL EXERCISE TIME: 11:10 CLINICAL INFORMATION: Baseline EKG shows sinus rhythm with early repolarization. Patient was given intravenous dobutamine over a period of 12 minutes as per protocol. Patient also received 0.5 mg of atropine following which 82% of predicted maximal heart rate without chest pain or diagnostic ST-segment depression. Baseline echo shows normal left ventricular size, wall motion and systolic function. Post dobutamine infusion, there is normal hyperdynamic response of all segments of myocardium noted. CONCLUSION: 1. Negative stress test by EKG criteria. 2. Negative dobutamine echo at 82% of predicted maximal heart rate. MMODL / IJN: [id number] /
[2019-09-14 13:15] VITALS: BP 141/97; PULSE 76; TEMP 98
== END 2019-09-14 14:53 | disposition home or self-care (01) ==
LOC: EC 10:03 → 3SCARD 13:07
PROVIDERS: ADMIT Family Medicine; ATTEND Family Medicine
DX: R07.89 Other chest pain (principal); R05 Cough; R50.9 Fever, unspecified; Z86.73 Personal history of transient ischemic attack (TIA), and cerebral infarction without residual deficits; Z79.82 Long term (current) use of aspirin; R06.02 Shortness of breath; Z79.899 Other long term (current) drug therapy; E78.5 Hyperlipidemia, unspecified; I10 Essential (primary) hypertension; R41.3 Other amnesia; R53.1 Weakness; R20.2 Paresthesia of skin; R20.0 Anesthesia of skin; R26.9 Unspecified abnormalities of gait and mobility; R47.01 Aphasia; Z87.09 Personal history of other diseases of the respiratory system; Z90.49 Acquired absence of other specified parts of digestive tract; F41.9 Anxiety disorder, unspecified; Z87.891 Personal history of nicotine dependence; Z82.49 Family history of ischemic heart disease and other diseases of the circulatory system; Z83.49 Family history of other endocrine, nutritional and metabolic diseases; I24.9 Acute ischemic heart disease, unspecified; I25.10 Atherosclerotic heart disease of native coronary artery without angina pectoris; R79.89 Other specified abnormal findings of blood chemistry; D18.03 Hemangioma of intra-abdominal structures; J06.9 Acute upper respiratory infection, unspecified; M79.89 Other specified soft tissue disorders; Z03.818 Encounter for observation for suspected exposure to other biological agents ruled out; Z95.818 Presence of other cardiac implants and grafts; E78.00 Pure hypercholesterolemia, unspecified
CPT/HCPCS: 96361 ×3; 96365; 96366 ×2; 96372; 93005 ×2; 99285; 36415; 93351; 85379; 80061; 80053; 83735; 84484; 85025; 85610; 85730; 87502; 87635; 71045; 71275; G0378 ×3; J1250; J3105; J0456 ×2; J0461; Q9967

== ENCOUNTER 2022-11-13 13:16 | Inpatient (IN) | payer MEDICARE, OTHER ==
--- NOTE | 2022-11-13 14:35 | ED ---
Weakness HPI - General Chief complaint: Weakness Stated complaint: Numbness in legs Time Seen by Provider: 11/13/22 14:11 Source: patient, family, RN notes reviewed, old records reviewed Mode of arrival: EMS Limitations: no limitations - History of Present Illness Initial comments: 49-year-old male with a history of CVA 4 hypertension hyperlipidemia and mid memory impairment who presents today with complaints of weakness specimen his left leg also feeling feverish he has numbness to the posterior aspect of his calf area. This apparently is been going on for a week. He's been bedbound for his for past 4-5 days and having difficulty walking. She is instructed to come to the hospital by his doctor. He did have a pending d-dimer and basilar test pending but this is not until November. 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 No other current complaints or modifying factors MD Complaint: generalized weakness, focal weakness - Related Data Home Medications Medication Instructions Recorded Confirmed Aspirin 81 mg PO DAILY 05/25/19 11/13/22 Baclofen 10 mg PO Q12H PRN 09/12/19 11/13/22 Budesonide/Formoterol Fumarate 2 puff INHALATION RT-DAILY 09/12/19 11/13/22 [Symbicort 160-4.5 Mcg Inhaler] Ezetimibe [Zetia] 10 mg PO HS 11/13/22 11/13/22 Memantine HCl [Namenda] 5 mg PO BID 11/13/22 11/13/22 Sertraline [Zoloft] 50 mg PO HS 11/13/22 11/13/22 Tamsulosin [Flomax] 0.4 mg PO HS 11/13/22 11/13/22 Tiotropium 2.5 Mcg/Puff [Spiriva 1 puff INHALATION RT-DAILY 11/13/22 11/13/22 Respimat 2.5 Mcg] amLODIPine [Norvasc] 5 mg PO HS 11/13/22 11/13/22 atenoloL [Tenormin] 25 mg PO BID 11/13/22 11/13/22 Previous Rx's Medication Instructions Recorded Atorvastatin [Lipitor] 80 mg PO HS #30 tab 09/14/19 Allergies Allergy/AdvReac Type Severity Reaction Status Date / Time No Known Allergies Allergy Verified 11/13/22 16:13 Review of Systems ROS Statement: Those systems with pertinent positive or pertinent negative responses have been documented in the HPI. ROS Other: All systems not noted in ROS Statement are negative. 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 Has home care. History of Any Multi-Drug Resistant Organisms: None Reported Past Surgical History: Appendectomy, Back Surgery, Hernia Repair, Orthopedic Surgery Additional Past Surgical History / Comment(s): Multiple inguinal hernia repairs/R orchiectomy, low back radiofrequency ablation/epidural injections, L femur surgery and bilateral foot surgery for arch problem and pigeon toe ., R arm crush injury with extensive reconstruction. Past Anesthesia/Blood Transfusion Reactions: No Reported Reaction Past Psychological History: Anxiety Smoking Status: Never smoker Past Alcohol Use History: Rare Past Drug Use History: None Reported - Past Family History Mother Family Medical History: Coronary Artery Disease (CAD), Hypertension, Thyroid Disorder Additional Family Medical History / Comment(s): She has had 3 vessel CABG Father Family Medical History: No Reported History Additional Family Medical History / Comment(s): . Brother(s) Family Medical History: No Reported History Sister(s) Family Medical History: No Reported History Son(s) Family Medical History: No Reported History Daughter(s) Family Medical History: No Reported History General Exam - General Exam Comments Initial Comments: Is a well-developed sec appearing male who is awake alert oriented 4 Limitations: no limitations General appearance: alert, in no apparent distress Head exam: Present: atraumatic, normocephalic, normal inspection Eye exam: Present: normal appearance, PERRL, EOMI. Absent: scleral icterus, conjunctival injection, periorbital swelling ENT exam: Present: normal exam, mucous membranes moist Neck exam: Present: normal inspection, full ROM, other (No stridor JVD or bruits). Absent: tenderness, meningismus, lymphadenopathy Respiratory exam: Present: normal lung sounds bilaterally. Absent: respiratory distress, wheezes, rales, rhonchi, stridor Cardiovascular Exam: Present: regular rate, normal rhythm, normal heart sounds. Absent: systolic murmur, diastolic murmur, rubs, gallop, clicks GI/Abdominal exam: Present: soft, normal bowel sounds. Absent: distended, tenderness, guarding, rebound, rigid, bruit, pulsatile mass Extremities exam: Present: normal inspection, normal capillary refill, other (He does demonstrate range of motion of his left lower extremity with numbness to the calf when he has lateral sensation to light touch temperature appears be consistent with the other side). Absent: tenderness, pedal edema, joint swelling, calf tenderness Back exam: Present: normal inspection Neurological exam: Present: alert, oriented X3, CN II-XII intact, motor sensory deficit (Numbness to the posterior left calf) Psychiatric exam: Present: normal affect, normal mood Skin exam: Present: warm, dry, intact, normal color. Absent: rash Course Vital Signs 11/13/22 11/13/22 13:32 16:58 Temperature 98.3 F Pulse Rate 63 68 Respiratory 18 18 Rate Blood Pressure 113/77 130/84 O2 Sat by Pulse 95 96 Oximetry Procedures - Smoking Cessation Time Spent Discussing Smoking Cessation w/Patient (Minutes): 3 Patient Acknowledges Need for Cessation: Yes Medical Decision Making - Medical Decision Making I did discuss the findings with the patient family also with Dr. Short the patient's symptoms have been over a week since the onset. After discussion with Dr. Short he would like the patient admitted here with neurology evaluation. The patient and his are in favor of this Was pt. sent in by a medical professional or institution (, PA, DATABASE MANAGER, urgent care, hospital, or jail...) When possible be specific @ -No Did you speak to anyone other than the patient for history (EMS, parent, family, police, friend...)? What history was obtained from this source @ -No Did you review nursing and triage notes (agree or disagree)? Why? @ -I reviewed and agree with nursing and triage notes Were old charts reviewed (outside hosp., previous admission, EMS record, old EKG, old radiological studies, urgent care reports/EKG's, jail records)? Report findings @ - old charts were reviewed Differential Diagnosis (chest pain, altered mental status, abdominal pain women, abdominal pain men, vaginal bleeding, weakness, fever, dyspnea, syncope, hea dache, dizziness, GI bleed, back pain, seizure, CVA, palpatations, mental health, musculoskeletal)? @ -CVA versus mechanical musculoskeletal pathology EKG interpreted by me (3pts min.). @ -EKG done at the time of service normal sinus rhythm a 61 appear interval 155 QRS 89 QT/QTC 411/4:[address]-T wave changes this appears to be a normal EKG X-rays interpreted by me (1pt min.). @ -Interpreted by me no acute process process CT interpreted by me (1pt min.). @ -Interpreted by me evidence of old finding is congenital and around the considered possible filling defect at the superior Glenn vein a represent sinus thrombosis with possible AV dural fistula vascular abnormality U/S interpreted by me (1pt. min.). @ -Left lower extremity ultrasound negative for DVT What testing was considered but not performed or refused? (CT, X-rays, U/S, labs)? Why? @ -None What meds were considered but not given or refused? Why? @ -None Did you discuss the management of the patient with other professionals (professionals i.e. , PA, DATABASE MANAGER, lab, RT, psych nurse, forensic social worker, metal wire technician, teacher, security patrol officer, case assistant)? Give summary @ -Dr. Short Was smoking cessation discussed for >3mins.? @ -Yes Was critical care preformed (if so, how long)? @ -No Were there social determinants of health that impacted care today? How? (Homelessness, low income, unemployed, alcoholism, drug addiction, transportation, low edu. Level, literacy, decrease access to med. care, fdc, rehab)? @ -No Was there de-escalation of care discussed even if they declined (Discuss DNR or withdrawal of care, Hospice)? DNR status @ -No What co-morbidities impacted this encounter? (DM, HTN, Smoking, COPD, CAD, Cancer, CVA, ARF, Chemo, Hep., AIDS, mental health diagnosis, sleep apnea, morbid obesity)? @ -History of CVA/TIA history of smoking history of hypertension Was patient admitted / discharged? Hospital course, mention meds given and route, prescriptions, significant lab abnormalities, going to OR and other pertinent info. @ -Patient was admitted to this facility neurology consultation Undiagnosed new problem with uncertain prognosis? @ -No Drug Therapy requiring intensive monitoring for toxicity (Heparin, Nitro, Insulin, Cardizem)? @ -No Were any procedures done? @ -No Diagnosis/symptom? @ -Left leg weakness, generalized weakness Acute, or Chronic, or Acute on Chronic? @ -Acute on chronic Uncomplicated (without systemic symptoms) or Complicated (systemic symptoms)? @ -default Side effects of treatment? @ -No Exacerbation, Progression, or Severe Exacerbation? @ -No Poses a threat to life or bodily function? How? (Chest pain, [place], [place], pneumonia, PE, COPD, DKA, ARF, appy, cholecystitis, CVA, Diverticulitis, Homicidal, Suicidal, threat to staff... and all critical care pts) @ -No - Lab Data Result diagrams: 11/13/22 14:30 11/13/22 14:30 Lab Results 11/13/22 11/13/22 11/13/22 Range/Units 14:30 14:30 14:30 WBC 8.8 (3.8-10.6) k/uL RBC 4.98 (4.30-5.90) m/uL Hgb 15.1 (13.0-17.5) gm/dL Hct 45.3 (39.0-53.0) % MCV 90.9 (80.0-100.0) fL MCH 30.4 (25.0-35.0) pg MCHC 33.5 (31.0-37.0) g/dL RDW 12.7 (11.5-15.5) % Plt Count 243 (150-450) k/uL MPV 8.7 Neutrophils % 67 % Lymphocytes % 24 % Monocytes % 5 % Eosinophils % 3 % Basophils % 1 % Neutrophils # 5.9 (1.3-7.7) k/uL Lymphocytes # 2.1 (1.0-4.8) k/uL Monocytes # 0.4 (0-1.0) k/uL Eosinophils # 0.2 (0-0.7) k/uL Basophils # 0.1 (0-0.2) k/uL PT 9.6 (9.0-12.0) sec INR 0.9 (<1.2) APTT 23.3 (22.0-30.0) sec D-Dimer 1.13 H (<0.60) mg/L FEU Sodium 141 (137-145) mmol/L Potassium 4.3 (3.5-5.1) mmol/L Chloride 106 (98-107) mmol/L Carbon Dioxide 25 (22-30) mmol/L Anion Gap 10 mmol/L BUN 18 (9-20) mg/dL Creatinine 0.94 (0.66-1.25) mg/dL Est GFR (CKD-EPI)AfAm >90 (>60 ml/min/1.73 sqM) Est GFR (CKD-EPI)NonAf 89 (>60 ml/min/1.73 sqM) Glucose 132 H (74-99) mg/dL Plasma Lactic Acid Xander (0.7-2.0) mmol/L Calcium 9.0 (8.4-10.2) mg/dL Magnesium 2.2 (1.6-2.3) mg/dL Total Bilirubin 1.6 H (0.2-1.3) mg/dL AST 29 (17-59) U/L ALT 37 (4-49) U/L Alkaline Phosphatase 78 (38-126) U/L Troponin I (0.000-0.034) ng/mL NT-Pro-B Natriuret Pep pg/mL Total Protein 6.8 (6.3-8.2) g/dL Albumin 4.3 (3.5-5.0) g/dL TSH 2.170 (0.465-4.680) mIU/L Urine Color Urine Appearance (Clear) Urine pH (5.0-8.0) Ur Specific [place] (1.001-1.035) Urine Protein (Negative) Urine Glucose (UA) (Negative) Urine Ketones (Negative) Urine Blood (Negative) Urine Nitrite (Negative) Urine Bilirubin (Negative) Urine Urobilinogen (<2.0) mg/dL Ur Leukocyte Esterase (Negative) 11/13/22 11/13/22 11/13/22 Range/Units 14:30 14:30 14:30 WBC (3.8-10.6) k/uL RBC (4.30-5.90) m/uL Hgb (13.0-17.5) gm/dL Hct (39.0-53.0) % MCV (80.0-100.0) fL MCH (25.0-35.0) pg MCHC (31.0-37.0) g/dL RDW (11.5-15.5) % Plt Count (150-450) k/uL MPV Neutrophils % % Lymphocytes % % Monocytes % % Eosinophils % % Basophils % % Neutrophils # (1.3-7.7) k/uL Lymphocytes # (1.0-4.8) k/uL Monocytes # (0-1.0) k/uL Eosinophils # (0-0.7) k/uL Basophils # (0-0.2) k/uL PT (9.0-12.0) sec INR (<1.2) APTT (22.0-30.0) sec D-Dimer (<0.60) mg/L FEU Sodium (137-145) mmol/L Potassium (3.5-5.1) mmol/L Chloride (98-107) mmol/L Carbon Dioxide (22-30) mmol/L Anion Gap mmol/L BUN (9-20) mg/dL Creatinine (0.66-1.25) mg/dL Est GFR (CKD-EPI)AfAm (>60 ml/min/1.73 sqM) Est GFR (CKD-EPI)NonAf (>60 ml/min/1.73 sqM) Glucose (74-99) mg/dL Plasma Lactic Acid Xander 1.7 (0.7-2.0) mmol/L Calcium (8.4-10.2) mg/dL Magnesium (1.6-2.3) mg/dL Total Bilirubin (0.2-1.3) mg/dL AST (17-59) U/L ALT (4-49) U/L Alkaline Phosphatase (38-126) U/L Troponin I <0.012 (0.000-0.034) ng/mL NT-Pro-B Natriuret Pep 78 pg/mL Total Protein (6.3-8.2) g/dL Albumin (3.5-5.0) g/dL TSH (0.465-4.680) mIU/L Urine Color Urine Appearance (Clear) Urine pH (5.0-8.0) Ur Specific [place] (1.001-1.035) Urine Protein (Negative) Urine Glucose (UA) (Negative) Urine Ketones (Negative) Urine Blood (Negative) Urine Nitrite (Negative) Urine Bilirubin (Negative) Urine Urobilinogen (<2.0) mg/dL Ur Leukocyte Esterase (Negative) 11/13/22 Range/Units 17:02 WBC (3.8-10.6) k/uL RBC (4.30-5.90) m/uL Hgb (13.0-17.5) gm/dL Hct (39.0-53.0) % MCV (80.0-100.0) fL MCH (25.0-35.0) pg MCHC (31.0-37.0) g/dL RDW (11.5-15.5) % Plt Count (150-450) k/uL MPV Neutrophils % % Lymphocytes % % Monocytes % % Eosinophils % % Basophils % % Neutrophils # (1.3-7.7) k/uL Lymphocytes # (1.0-4.8) k/uL Monocytes # (0-1.0) k/uL Eosinophils # (0-0.7) k/uL Basophils # (0-0.2) k/uL PT (9.0-12.0) sec INR (<1.2) APTT (22.0-30.0) sec D-Dimer (<0.60) mg/L FEU Sodium (137-145) mmol/L Potassium (3.5-5.1) mmol/L Chloride (98-107) mmol/L Carbon Dioxide (22-30) mmol/L Anion Gap mmol/L BUN (9-20) mg/dL Creatinine (0.66-1.25) mg/dL Est GFR (CKD-EPI)AfAm (>60 ml/min/1.73 sqM) Est GFR (CKD-EPI)NonAf (>60 ml/min/1.73 sqM) Glucose (74-99) mg/dL Plasma Lactic Acid Xander (0.7-2.0) mmol/L Calcium (8.4-10.2) mg/dL Magnesium (1.6-2.3) mg/dL Total Bilirubin (0.2-1.3) mg/dL AST (17-59) U/L ALT (4-49) U/L Alkaline Phosphatase (38-126) U/L Troponin I (0.000-0.034) ng/mL NT-Pro-B Natriuret Pep pg/mL Total Protein (6.3-8.2) g/dL Albumin (3.5-5.0) g/dL TSH (0.465-4.680) mIU/L Urine Color Light Yellow Urine Appearance Clear (Clear) Urine pH 7.0 (5.0-8.0) Ur Specific [place] >1.050 H (1.001-1.035) Urine Protein Trace H (Negative) Urine Glucose (UA) Negative (Negative) Urine Ketones Negative (Negative) Urine Blood Negative (Negative) Urine Nitrite Negative (Negative) Urine Bilirubin Negative (Negative) Urine Urobilinogen <2.0 (<2.0) mg/dL Ur Leukocyte Esterase Negative (Negative) - Radiology Data Interpreted by me: (Interpreted by me-year-old venous sinuses appear dilated there are dilated vascular structure/veins within the posterior fossa he does appear to correlate with previous exams. ET [place] as well as evidence of filling defect possible sinus thrombosis with possibly be-year-old fistula in vascular anomaly Disposition Clinical Impression: Left leg weakness, CVA (cerebral vascular accident) Disposition[facility] Condition: Stable Referrals: Justice Short MD [Primary Care Provider] - 1-2 days Decision Date: 11/13/22 Decision Time: 19:00
[2022-11-13 14:42] LABS: Basophils # (A) 0.1 k/uL (0-0.2); Basophils % (A) 1 %; Eosinophils # (A) 0.2 k/uL (0-0.7); Eosinophils % (A) 3 %; HCT 45.3 % (39.0-53.0); HGB 15.1 gm/dL (13.0-17.5); Lymphocytes # (A) 2.1 k/uL (1.0-4.8); Lymphocytes % (A) 24 %; MCH 30.4 pg (25.0-35.0); MCHC 33.5 g/dL (31.0-37.0); MCV 90.9 fL (80.0-100.0); Mean Platelet Volume 8.7; Monocytes # (A) 0.4 k/uL (0-1.0); Monocytes % (A) 5 %; Neutrophils # (A) 5.9 k/uL (1.3-7.7); Neutrophils % (A) 67 %; Platelet Count 243 k/uL (150-450); RBC 4.98 m/uL (4.30-5.90); RDW 12.7 % (11.5-15.5); WBC 8.8 k/uL (3.8-10.6)
[2022-11-13 14:54] LABS: ALT 37 U/L (4-49); AST 29 U/L (17-59); African American GFR (CKD) >90 (>60 ml/min/1.73 sqM); Albumin 4.3 g/dL (3.5-5.0); Alkaline Phosphatase 78 U/L (38-126); Anion Gap 10 mmol/L; Blood Urea Nitrogen 18 mg/dL (9-20); Carbon Dioxide 25 mmol/L (22-30); Chloride 106 mmol/L (98-107); Glucose 132 mg/dL (74-99); Magnesium 2.2 mg/dL (1.6-2.3); Non-African American GFR(CKD) 89 (>60 ml/min/1.73 sqM); Potassium 4.3 mmol/L (3.5-5.1); Sodium 141 mmol/L (137-145); Total Bilirubin 1.6 mg/dL (0.2-1.3); Total Protein 6.8 g/dL (6.3-8.2)
--- NOTE | 2022-11-13 15:00 | XR ---
EXAMINATION TYPE: XR chest 2V DATE OF EXAM: 11/13/2022 2:47 PM COMPARISON: Chest radiographs from 09/12/2019 TECHNIQUE: XR chest 2V Frontal and lateral views of the chest. CLINICAL INDICATION:Male, 57 years old with history of Weakness; FINDINGS: Lungs/Pleura: There is no evidence of pleural effusion, focal consolidation, or pneumothorax. Pulmonary vascularity: Unremarkable. Heart/mediastinum: Cardiomediastinal silhouette is unremarkable. A loop recorder projects over the le ft thorax over the heart. Musculoskeletal: No acute osseous pathology. IMPRESSION: No acute cardiopulmonary disease/process.
[2022-11-13 15:06] LABS: INR 0.9 (<1.2); Partial Thromboplastin Time 23.3 sec (22.0-30.0); Prothrombin Time 9.6 sec (9.0-12.0)
--- NOTE | 2022-11-13 15:07 | CT ---
EXAMINATION TYPE: CT brain wo con DATE OF EXAM: 11/13/2022 COMPARISON: 05/25/2019 HISTORY: weakness CT DLP: 1158.7 mGycm Automated exposure control for dose reduction was used. FINDINGS: Dense basal ganglia calcification bilaterally. Linear calcification deep white matter right parietal lobe stable. Mild generalized degenerative change with an area of low attenuation in the left parietal deep white matter compatible with remote infarct stable. Punctate hypodensities within the left basal ganglia an d right thalamus compatible with remote lacunar infarct. No acute hemorrhage or midline shift. Prominent cortical vein along the right cerebral convexity stab le. Calvarium intact. Changes of chronic sinusitis. Orbits are symmetric. A prominent vascular struct ure seen in the region of the internal cerebral vein. Recommend [place] CTA. Do not definiti vely seen in internal cerebral vein. IMPRESSION: DEGENERATIVE AND REMOTE ISCHEMIC CHANGE WITH NO ACUTE HEMORRHAGE OR MASS EFFECT. THE DURAL VENOUS SINUSES APPEAR DILATED AND THERE ARE DILATED VASCULAR STRUCTURE/ VEINS WITHIN THE PO STERIOR FOSSA EXTENDING ALONG THE UPPER MARGIN OF THE CEREBELLUM AND SUPERIOR RIGHT CEREBRAL CONVEXIT Y, STABLE FROM PRIOR EXAM. RECOMMEND CORRELATION WITH MRA TO ASSESS FOR VASCULAR ANOMALY/ DURAL AVF.
--- NOTE | 2022-11-13 15:28 | US ---
EXAMINATION TYPE: US venous doppler duplex LE LT DATE OF EXAM: 11/13/2022 3:19 PM COMPARISON: NONE CLINICAL INDICATION: Male, 57 years old with history of DVT suspected; weakness in leg. SIDE PERFORMED: Left TECHNIQUE: The lower extremity deep venous system is examined utilizing real time linear array sonog radha with graded compression, doppler sonography and color-flow sonography. VESSELS IMAGED: Common Femoral Vein Deep Femoral Vein Greater Saphenous Vein * Femoral Vein Popliteal Vein Small Saphenous Vein * Proximal Calf Veins (* superficial vessels) Grayscale, color doppler, spectral doppler imaging performed of the deep veins of the left lower extr emity. There is normal flow, compressibility, vascular waveforms. Left Leg: Negative for DVT IMPRESSION: No ultrasound evidence for deep venous thrombosis of the left lower extremity.
--- NOTE | 2022-11-13 16:32 | CT ---
EXAMINATION TYPE: CT angio COW [place] CT DLP: 1912.6 mGycm, Automated exposure control for dose reduction was used. DATE OF EXAM: 11/13/2022 3:49 PM COMPARISON: CT brain 11/13/2022. CLINICAL INDICATION:Male, 57 years old with history of Left lower extremity weakness; PHH, weakness. hx of CVA/TIA TECHNIQUE: Axially acquired helical CT angiogram of the head was obtained with contrast utilizing 65 cc of Isovue-370 administered intravenously. Axial images are supplemented with 3D reconstructions wh ich were post-processed at an independent workstation. NASCET criteria used. FINDINGS: No evidence of acute intracranial hemorrhage, mass effect, or midline shift. The ventricles, sulci, a nd cisterns are unremarkable. The visualized portions of the internal carotid arteries, middle cerebral arteries, anterior cerebral arteries, and posterior cerebral arteries are patent. origin of the right posterior cerebral a rtery. The left posterior communicating artery is diminutive. The basilar and vertebral arteries are patent. Left vertebral artery is dominant. The transverse and sagittal sinuses appear patent. There is early filling of the venous vascular stru ctures of the brain centered around the posterior cranial fossa. There is a filling defect identified at the superior vermian vein the confluence (series 402, image 53). Dilated right-sided vein of Trol har[place] and Josh identified. IMPRESSION: 1. No evidence of high-grade stenosis or intracranial aneurysm. 2. Early filling of the venous vascular structures with possible filling defect at the superior verm in vein in the region of the confluence. This may represent a sinus thrombosis with possible AV dural fistula/vascular anomaly. Consider further evaluation with cerebral angiogram.
[2022-11-13 18:08] LABS: Appearance,Urine Clear (Clear); Bilirubin,Urine Negative (Negative); Blood,Urine Negative (Negative); Color,Urine Light Yellow; Glucose,Urine (UA) Negative (Negative); Ketones,Urine Negative (Negative); Leukocyte Esterase,Urine Negative (Negative); Nitrite,Urine Negative (Negative); Protein,Urine Trace (Negative); Specific Gravity,Urine >1.050 (1.001-1.035); Urobilinogen,Urine <2.0 mg/dL (<2.0)
[2022-11-13] MEDS ORDERED: BACLOFEN 10 MG TAB PO PRN (20:06)
[2022-11-13] MEDS: TAMSULOSIN 0.4 MG CAP.ER.24H PO SCH (21:20)
[2022-11-13] MEDS: atenoloL 25 MG TAB PO SCH (21:20)
[2022-11-13] MEDS: EZETIMIBE 10 MG TAB PO SCH (21:20)
[2022-11-13] MEDS: MEMANTINE 5 MG TAB PO SCH (21:20)
[2022-11-13] MEDS: SERTRALINE 50 MG TAB PO SCH (21:20)
[2022-11-13] MEDS: ATORVASTATIN 80 MG TAB PO SCH (21:20)
[2022-11-13] MEDS: SODIUM CHLORIDE 0.9% 1,000 ML IV SCH (21:20)
[2022-11-13] MEDS: amLODIPine 5 MG TAB PO SCH (21:20)
[2022-11-14] MEDS: SYMBICORT 160-4.5 MCG INHALER INHALATION SCH (07:35)
[2022-11-14] MEDS: IPRATROPIUM 0.5 MG/2.5 ML NEBU INHALATION SCH ×3 (07:35→15:22)
[2022-11-14] MEDS: SODIUM CHLORIDE 0.9% 1,000 ML IV SCH ×2 (07:55→17:39)
[2022-11-14] MEDS: MEMANTINE 5 MG TAB PO SCH ×2 (09:36→20:26)
[2022-11-14] MEDS: ASPIRIN 81 MG PO SCH (09:36)
[2022-11-14] MEDS: atenoloL 25 MG TAB PO SCH ×2 (09:36→20:26)
--- NOTE | 2022-11-14 13:46 | MR ---
EXAMINATION TYPE: MR MRA/MRV head wo con DATE OF EXAM: 11/14/2022 12:57 PM CLINICAL INDICATION:Male, 57 years old with history of possible aneurysm Possible aneurysm. Sinus thr ombosis per CT COMPARISON: CT 05/25/2019, 10/25/2014, 09/12/2019, 11/13/2022 TECHNIQUE: MRA brain: 3-D [id number] Axial with MIP and 3-D reconstruction performed on a separate workstati on. MRV of the brain: performed utilizing two-dimensional [id number] technique MIP and 3-D reconstruc tion. Performed on a separate workstation. IV Contrast: None Findings: Vertebral arteries: The vertebral arteries are patent. Codominant bilaterally. Basilar artery: The basilar artery is intact. The basilar artery bifurcation is normal. Internal Carotid arteries: The cervical, petrous, cavernous and supraclinoid segments are normal. LITZY: Patent without evidence of aneurysm. ACOM: Patent without evidence of aneurysm. MCA: Patent without evidence of aneurysm. Fusiform dilation of the M2 segments bilaterally which are increased in caliber compared to the M1 segments. ROUTE INSPECTOR: Patent without evidence of aneurysm. PCOM: Hypoplastic left and feel origin on the right. No obvious fistula between the arteriovenous vasculature. Left cerebellar hemisphere developmental venous anomaly better appreciated on prior CT. There is no evidence of venous occlusion or collateral circulation. There is significant dilation of the sagittal sinus the confluence of sinuses. There is no evidence of sinus thrombosis in the area of prior abnormality on CT. It is unchanged from prior in 2019 there are dilated superficial venous str uctures including the vein of Josh and [place]. Possible vein of Padilla remains present. IMPRESSION: 1. 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 There is likely abnormal flow dynamics which could results in intracranial hypotension. Patien t should go to a [place] undergo a cerebral arteriogram to look for occult AV fistula. 2. M2 segments are larger then the M1 segments fusiform prominence without saccular aneurysm visuali zed. Left cerebellar developmental venous anomaly. 3. No evidence of venous sinus thrombosis immediate prior CT is present on 2019 study. 4. No evidence of intracranial aneurysm or significant stenosis.
--- NOTE | 2022-11-14 13:57 | MR ---
EXAMINATION TYPE: MR brain wo con DATE OF EXAM: 11/14/2022 12:55 PM COMPARISON: Multiple priors including 11/13/2022, MRA MRV, MRI brain 05/25/2019 CT chest 05/25/2019. CLINICAL INDICATION:Male, 57 years old with history of stroke. left leg weakness; TECHNIQUE: Multi planar, multi sequence imaging was performed through the brain including: T1, T2, In version recovery, Diffusion weighted imaging, and gradient echo imaging. No gadolinium was given. FINDINGS: Remote left basal ganglia and left thalamus as well injury of the right thalamus as seen on 05/25/2019. Mild dilation of ventricular system in proportion to cerebral atrophy. Scattered foci of high T2 signal intensity are seen within the periventricular white matter. Midline structures show n o abnormality. Diffusion-weighted imaging shows no evidence of restricted diffusion. Blooming artifac t within the left cerebellar hemisphere and to a lesser extent the right compatible with a mild venou s anomaly. Additional development of venous anomalies seen scattered through the left occipital lobe. And left frontal lobe. The bone marrow signal is within normal limits. Paranasal sinuses and mastoid air cells: No significant paranasal sinus disease. Visualized orbits: Orbital contents are intact. IMPRESSION: 1. No evidence of intracranial mass or acute/subacute infarct. 2. Remote left basal ganglia, left thalamus injuries and right thalamus injuries. 3. Scattered developmental venous anomalies with dilation of the venous sinuses. As better appreciate d on dedicated vascular imaging. 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 Further evaluation with cerebral arteriogram at a [facility] could be performed rule out underlying arteriovenous fist lani. 4. Nonspecific white matter changes, likely secondary to small vessel ischemic disease.
--- NOTE | 2022-11-14 14:12 | P.CNNES ---
History of Present Illness Consult date: 11/14/22 Requesting physician: Andrés Bae Reason for Consult: left lower extremity weakness History of Present Illness: This is a 57-year-old gentleman with history of 4 strokes with residual right hemiparesis, brain aneurysm and was notified nonoperable, memory loss as a result of the strokes, tobacco use presented emergency department because of left-sided weakness dominantly leg. Patient stated his symptoms has been going on for the past 2 weeks initially started with the left leg mostly in the calf region and he felt weak and numb then the now he feels his left upper extremity is weak and he feeling the slurring his speech. He cannot tell me why he did not seek medical management immediately. He denies of any nausea or vomiting but has mild headache over the right frontal region and could not describe that the headache denies any radiation of the headache. He feels is slurring the speech the slightly. He takes aspirin 81 mg daily. Denies any visual disturbance. He resides with his . Note regarding his strokes he said the last stroke was about 3 years ago and that is a result of stroke she had right residual sided weakness and uses a cane. He is to follow up with a neurosurgeon who told him he had the ring aneurysm and it's nonoperable. He was told that he had operation it could result in the permanent neurological deficits or even the because of the location. His neurosurgeon was over at [facility] and the last time he seen him was the many years back since his neurosurgeon has left practice according to the patient but has not followed up with different neurosurgeon. He states that he follows up with his PCP and unsure if the she was referred to a different neurosurgeon. Some of the workup during his hospital visit consisted of: TSH is 2.170. CT of the head is reported as degenerative and remote ischemic changes with no acute hemorrhage or mass effect. The dural venous sinuses appear dilated and there are dilated vascular structure/veins within the posterior fossa extending along the upper margin of the cerebellar and superior right cerebral convexity, stable from prior exam. Recommend correlation with MRA to assess vascular anomaly/dural AV malformation. I personally reviewed the CT of the head and patient has chronic hypodensity on the left central of the mid anterior horn periventricle. Has old lacunar stroke in the bilateral aided ganglia/on the right thalamus and the left. CT angiography of the [place] is reported as no evidence of high-grade stenosis or intracranial aneurysm. Early filling of the venous vascular structures with possible filling defect at the superior vermin vein in the region of confluence. This may represent as sinus thrombosis with possible AV dural fistula/vascular anomaly. Consider further evaluation with cerebral angiogram. No IV TPA since the patient's symptoms began about 2 weeks ago and the risk of TPA outweigh the benefit. Review of Systems Review of system: The 12 point system was reviewed and apparent positive and negative per HPI. 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 Has home care. History of Any Multi-Drug Resistant Organisms: None Reported Past Surgical History: Appendectomy, Back Surgery, Hernia Repair, Orthopedic Surgery Additional Past Surgical History / Comment(s): Multiple inguinal hernia repair s/R orchiectomy, low back radiofrequency ablation/epidural injections, L femur surgery and bilateral foot surgery for arch problem and pigeon toe ., R arm crush injury with extensive reconstruction. Past Anesthesia/Blood Transfusion Reactions: No Reported Reaction Past Psychological History: Anxiety Smoking Status: Never smoker Past Alcohol Use History: Rare Past Drug Use History: None Reported - Past Family History Mother Family Medical History: Coronary Artery Disease (CAD), Hypertension, Thyroid Disorder Additional Family Medical History / Comment(s): She has had 3 vessel CABG Father Family Medical History: No Reported History Additional Family Medical History / Comment(s): . Brother(s) Family Medical History: No Reported History Sister(s) Family Medical History: No Reported History Son(s) Family Medical History: No Reported History Daughter(s) Family Medical History: No Reported History Medications and Allergies Home Medications Medication Instructions Recorded Confirmed Type Aspirin 81 mg PO DAILY 05/25/19 11/13/22 History Baclofen 10 mg PO Q12H PRN 09/12/19 11/13/22 History Budesonide/Formoterol Fumarate 2 puff INHALATION RT-DAILY 09/12/19 11/13/22 History [Symbicort 160-4.5 Mcg Inhaler] Atorvastatin [Lipitor] 80 mg PO HS #30 tab 09/14/19 11/13/22 Rx Ezetimibe [Zetia] 10 mg PO HS 11/13/22 11/13/22 History Memantine HCl [Namenda] 5 mg PO BID 11/13/22 11/13/22 History Sertraline [Zoloft] 50 mg PO HS 11/13/22 11/13/22 History Tamsulosin [Flomax] 0.4 mg PO HS 11/13/22 11/13/22 History Tiotropium 2.5 Mcg/Puff [Spiriva 1 puff INHALATION RT-DAILY 11/13/22 11/13/22 History Respimat 2.5 Mcg] amLODIPine [Norvasc] 5 mg PO HS 11/13/22 11/13/22 History atenoloL [Tenormin] 25 mg PO BID 11/13/22 11/13/22 History Allergies Allergy/AdvReac Type Severity Reaction Status Date / Time No Known Allergies Allergy Verified 11/13/22 16:13 Physical Examination - Vital Signs Vital Signs: Vital Signs Pulse Resp BP Pulse Ox 11/14/22 09:43 65 18 108/90 97 11/14/22 05:53 74 104/67 94 L 11/13/22 21:18 61 18 138/101 98 11/13/22 16:58 68 18 130/84 96 GENERAL: The patient is lying in bed and is not in acute distress. NEUROLOGICAL: Higher mental function: The patient is awake, alert, oriented to self and stated he was in the hospital but could not tell me name. He stated the month is August and could not tell me year/ Patient is following simple commands. No aphasia and no neglect. Cranial nerves: The pupils are round, equal and reactive to light and accom modation. Visual shields are full to confrontation throughout. Extraocular movement is intact no nystagmus is noted. Facial sensation is normal to touch throughout. The facial strength is normal throughout. Hearing is normal bilaterally to hand rub. Tongue is midline and moved [id number] without any difficulty. Mild dysarthria is noted. Shoulder shrug is normal bilaterally. Motor: The strength is 4+ over the right hip is 5/5. Otherwise rest of right side are 4+. Left forearm extension is 4+ to 5-, left knee felxion/extension are 4+. Otherwise 5/5 over left side. Normal tone and bulk. Cerebellum: Normal finger to nose bilaterally.. Sensation: Sensation is decrease to touch over the left lower. Reflexes (right/left): 2+ thorughout. Plantars: Is upgoing over the right but mute over the left. Results - Laboratory Findings CBC and BMP: 11/13/22 14:30 11/13/22 14:30 Abnormal Lab Findings: Abnormal Labs 11/13/22 11/13/22 11/13/22 14:30 14:30 17:02 D-Dimer 1.13 H Glucose 132 H Total Bilirubin 1.6 H Ur Specific [place] >1.050 H Urine Protein Trace H Assessment and Plan Assessment: This is a 57-year-old gentleman who had 4 strokes with residual right-sided weakness who presented because of left-sided weakness predominantly initially started with the left leg about 2 weeks ago. Patient states she has history of brain aneurysm and was told by a neurosurgeon it's not operable Subacute left-sided weakness rule out subacute stroke not seen on CT. On CTA reported as Early filling of the venous vascular structures with possible filling defect at the superior vermin vein in the region of confluence. This may represent as sinus thrombosis with possible AV dural fistula/vascular anomaly. History of multiple strokes (4 according to him) with residual right hemiparesis History of brain aneurysm and was told not operable but has not followed-up with neurosurgeon in years Dementia (appears vascular from his hx of multiple strokes) Hypertension Tobacco use Plan: I ordered MRI the brain and MRA of the head and MRV stat Ordered 2-D echo, hemoglobin A1c. Lipid panel ordered and pending. Patient was started on aspirin 81 mg daily his home medication by the ED. We'll avoid dual antiplatelets until further imaging is obtained to avoid at risk of a bleeding especially with aneurysm that is reported. On Lipitor 80 mg daily at bedtime which is sufficient for secondary stroke prophylaxis Continue neuo checks. Cardiac monitoring PT OT and VOLLEYBALL REFEREE are consulted Recommend normotensive blood pressure especially with ?brain aneurysm. She was counseled on tobacco cessation We'll defer the rest of the medical management to primary team For DVT prophylaxis: On SCD. Recommend the patient follow up with a neurologist as well as neurosurgeon as an outpatient within 1-2 weeks. The plan was discussed with the patient and his nurse at bedside. Thank you for the consultation Time with Patient: Greater than 30
[2022-11-14] MEDS: methylPREDNISolone SOD SUCCI 40 MG/ML 1 ML VIAL IV SCH (16:47)
--- NOTE | 2022-11-14 17:22 | CT ---
EXAMINATION TYPE: CT angio chest CT DLP: 287.3 mGycm, Automated exposure control for dose reduction was used. DATE OF EXAM: 11/14/2022 4:45 PM COMPARISON: 09/11/2021 CLINICAL INDICATION:Male, 57 years old with history of elevated ddimer; elevated d-dimer TECHNIQUE/CONTRAST: CTA scan of the thorax is performed with IV Contrast, patient injected with 76cc mL of Isovue 370, pu lmonary embolism protocol. MIP images are created and reviewed these are created on a separate works tation.. FINDINGS: Pulmonary Artery: There is no evidence for a filling defect within the pulmonary vasculature to sugge st acute pulmonary embolism. The pulmonary artery is of normal size. Lungs/Pleura: Mild intralobular septal thickening. No evidence of focal consolidation, pleural effusi on or pneumothorax. Airway: Large airways are patent. Heart: The heart is mildly enlarged for size. Vasculature: No evidence of aortic aneurysm. Mediastinum: No gross evidence of adenopathy. Musculoskeletal: No acute osseous abnormalities Soft Tissues: Loop recorder in the left anterior chest. Mild gynecomastia changes bilaterally. Lower neck: No significant findings. Upper Abdomen: Indeterminate right hepatic lobe hypoechoic intense lesion measuring up to 21 mm is un changed from prior on prior on 09/12/2019 has had some peripheral discontinuous enhancement suggesting hemangioma. IMPRESSION: No evidence of pulmonary embolism. Mild pulmonary vascular congestion suggested correlate with serum BNP.
[2022-11-14] MEDS: IPRATROPIUM-ALBUTEROL 3 ML NEB INHALATION SCH (20:03)
[2022-11-14] MEDS: TAMSULOSIN 0.4 MG CAP.ER.24H PO SCH (20:26)
[2022-11-14] MEDS: ATORVASTATIN 80 MG TAB PO SCH (20:26)
[2022-11-14] MEDS: SERTRALINE 50 MG TAB PO SCH (20:26)
[2022-11-14] MEDS: EZETIMIBE 10 MG TAB PO SCH (20:26)
[2022-11-14] MEDS: amLODIPine 5 MG TAB PO SCH (20:26)
--- NOTE | 2022-11-14 21:46 | HP ---
HISTORY AND PHYSICAL HISTORY OF PRESENT ILLNESS: A 57-year-old white male with history of CVA, hypertension, dyslipidemia, and memory impairment, came in with complaints of weakness of his leg, feels feverish, numbness to the posterior aspect of his calf area from the left thigh. It has been going on for a week, bedbound per his for 4 to 5 days, difficulty walking, came to the hospital. He did have a pending D-dimer. Basilar test pending in November. He has neurologic workup pending. He has a history of basal ganglia aneurysm, inoperable. HOME MEDICATIONS: 1. Flomax 0.4 daily. 2. Zoloft 50 mg daily. 3. Namenda 5 mg b.i.d. 4. Zetia 10 mg daily. 5. Symbicort 160/4.5 two puffs b.i.d. 6. Aspirin 81 mg daily. 7. Baclofen 10 q.12. 8. Tenormin 25 b.i.d. 9. Spiriva inhaler 2.5 one puff daily. 10.Norvasc 5 mg daily. ALLERGIES: Negative. REVIEW OF SYSTEMS: Fourteen-point review of systems is otherwise negative. PAST MEDICAL HISTORY: As mentioned above, CVA, aneurysm, and left-sided weakness status post stroke 4 years ago. PAST SURGICAL HISTORY: Appendectomy, back surgery, hernia repair, and orthopedic surgery. FAMILY HISTORY: Reviewed. Please see orders. PHYSICAL EXAMINATION: GENERAL: Alert and oriented x4. HEENT: Normocephalic and atraumatic. Pupils are equal, round, and reactive. ENT, external ear canals are within normal. NECK: Supple. No mass. RESPIRATORY: Decreased breath sounds x4. CARDIOVASCULAR: Regular rate and rhythm. GI: Soft and nontender. EXTREMITIES: Normal to inspection. Maybe 4/5 strength in left arm and leg, 5/5 in the right. PSYCHIATRIC: He is giving appropriate answers. He is alert and oriented x3. Cranial nerves appear to be intact. VITAL SIGNS: Temperature 98.3, blood pressure is 113 to 130 over 77 to 84, O2 of 95% to 96%, pulse 63 to 68, respiratory rate 18. LABORATORY DATA: All reviewed. Essentially normal except for bilirubin of 1.6 and glucose of 132. UA is negative. ASSESSMENT AND PLAN: Left leg weakness, prior cerebrovascular accident, altered mental status, possible dehydration. Neurology workup pending prior to discharge. Please see further orders. MMODL / IJN: [id number] /
[2022-11-14 22:07] LABS: Chol/HDL Ratio 2.69 Ratio; LDL Cholesterol,Calculated 31.3 mg/dL (0.0-131.0)
[2022-11-15] MEDS: methylPREDNISolone SOD SUCCI 40 MG/ML 1 ML VIAL IV SCH ×3 (00:06→16:23)
[2022-11-15] MEDS: SODIUM CHLORIDE 0.9% 1,000 ML IV SCH ×2 (03:00→12:32)
[2022-11-15] MEDS: IPRATROPIUM-ALBUTEROL 3 ML NEB INHALATION SCH ×3 (08:48→15:53)
[2022-11-15] MEDS: SYMBICORT 160-4.5 MCG INHALER INHALATION SCH (08:49)
[2022-11-15] MEDS: atenoloL 25 MG TAB PO SCH (09:01)
[2022-11-15] MEDS: ASPIRIN 81 MG PO SCH (09:01)
[2022-11-15] MEDS: MEMANTINE 5 MG TAB PO SCH (09:01)
--- NOTE | 2022-11-15 15:31 | P.PN ---
Subjective Progress Note Date: 11/15/22 Patient is seen at bedside and feels about the same. Denies of any worsening of his neurological condition. Objective - Vital Signs Vital signs: Vital Signs Temp 98.3 F 11/15/22 09:00 Pulse 68 11/15/22 12:23 Resp 16 11/15/22 11:51 BP 115/64 11/15/22 11:51 Pulse Ox 97 11/15/22 11:51 FiO2 Intake & Output 11/14/22 11/15/22 11/15/22 18:59 06:59 18:59 Intake Total 100 658 Output Total 770 Balance -670 658 Weight 74.843 kg Intake: Oral 100 658 Output: Urine 770 Other: Voiding Method Urinal Urinal # Voids 2 - Exam GENERAL: The patient is lying in bed and is not in acute distress. NEUROLOGICAL: Higher mental function: The patient is awake, alert, oriented to self and stated he was in the hospital but could not tell me name. He stated the month is August and could not tell me year/ Patient is following simple commands. No aphasia and no neglect. Cranial nerves: The pupils are round, equal and reactive to light and accommodation. Visual shields are full to confrontation throughout. Extraocular movement is intact no nystagmus is noted. Facial sensation is normal to touch throughout. The facial strength is normal throughout. Hearing is normal bilaterally to hand rub. Tongue is midline and moved [id number] without any difficulty. Mild dysarthria is noted. Shoulder shrug is normal bilaterally. Motor: The strength is 4+ to 5- over the right hip. Otherwise rest of right side are 4+. Left forearm extension is 5-, left knee felxion/extension are 4+. Otherwise 5/5 over left side. Normal tone and bulk. Cerebellum: Normal finger to nose bilaterally.. Sensation: Sensation is decrease to touch over the calf. Reflexes (right/left): 2+ thorughout. Plantars: Is upgoing over the right but mute over the left. Some of the workup during his hospital visit consisted of: TSH is 2.170. Lipid panel is triglyceride 164, cholesterol 102, LDLs 31 and HDL 37. Hemoglobin A1c 6.4. CT of the head is reported as degenerative and remote ischemic changes with no acute hemorrhage or mass effect. The dural venous sinuses appear dilated and there are dilated vascular structure/veins within the posterior fossa extending along the upper margin of the cerebellar and superior right cerebral convexity, stable from prior exam. Recommend correlation with MRA to assess vascular anomaly/dural AV malformation. I personally reviewed the CT of the head and patient has chronic hypodensity on the left central of the mid anterior horn periventricle. Has old lacunar stroke in the bilateral aided ganglia/on the right thalamus and the left. CT angiography of the [place] is reported as no evidence of high-grade stenosis or intracranial aneurysm. Early filling of the venous vascular structures with possible filling defect at the superior vermin vein in the region of confluence. This may represent as sinus thrombosis with possible AV dural fistula/vascular anomaly. Consider further evaluation with cerebral angiogram. MR the brain is reported as no evidence of intracranial mass or acute/subacute infarct area and remote left basal ganglia, left thalamus injuries and right thalamus injuries. Scattered of mental venous anomalies with dilation of the venous sinuses. As better appreciated on dedicated vascular imaging. 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 Further evaluation was cerebral arteriogram at a [place] [facility] could be performed to rule out underlying arteriovenous fistula. Nonspecific white matter changes, likely secondary due to small vessel ischemic disease. MRA head and MRV: It is reported as suspected greater cerebral vein a anomaly w ith dilated sinuses. Could represent vein of gallon malformation. This is likely abnormal flow dynamic which could represent intracranial hypotension. [facility]iogram to look for occult AV fistula. M2 segment are larger than M1 segment fusiform prominence without saccular aneurysm visualized. Left cerebellar the mental venous anomaly. No evidence of venous sinus thrombosis immediately prior CT is present on 2019 study. No evidence of intracranial aneurysm or significant stenosis. - Labs CBC & Chem 7: 11/13/22 14:30 11/13/22 14:30 Labs: Abnormal Lab Results - Last 24 Hours (Table) 11/13/22 11/13/22 Range/Units 14:30 14:30 Hemoglobin A1c 6.4 H (<=6.0) % Triglycerides 164.00 H (0.00-149.00) mg/dL HDL Cholesterol 37.90 L (40.00-60.00) mg/dL Assessment and Plan Assessment: This is a 57-year-old gentleman who had 4 strokes with residual right-sided weakness who presented because of left-sided weakness predominantly initially started with the left leg about 2 weeks ago. Patient states she has history of brain aneurysm and was told by a neurosurgeon it's not operable Subacute left-sided weakness: No new stroke. but has venous anomly and concerned that it has progressed ?causing compression leading to his weakness. On CTA reported as Early filling of the venous vascular structures with possible filling defect at the superior vermin vein in the region of confluence. This may represent as sinus thrombosis with possible AV dural fistula/vascular anomaly. History of multiple strokes (4 according to him) with residual right hemiparesis History of brain aneurysm and was told not operable but has not followed-up with neurosurgeon in years. On MR imaging possible [place] venous anomaly but rule out AV malformation. Dementia (appears vascular from his hx of multiple strokes). Has bilateral basal ganglia/thalamus stroke Hypertension DM (HbA1c 6.4) Tobacco use Plan: Pending 2-D echo Patient was started on aspirin 81 mg daily his home medication by the ED. We'll avoid dual antiplatelets because of increase risk of bleed. On Lipitor 80 mg daily at bedtime which is sufficient for secondary stroke prophylaxis Continue neuo checks. Cardiac monitoring PT OT and REFRIGERATION OPERATOR are consulted Recommend normotensive blood pressure. She was counseled on tobacco cessation Patient is pending to be transferred to [facility] for neurosurgeon evaluation (spoke with Dr. Rayray Fournier and accepted patient). Pending beds at this time. We'll defer the rest of the medical management to primary team For DVT prophylaxis: On SCD. Recommend the patient follow up with a neurologist as well as neurosurgeon as an outpatient within 1-2 weeks. The plan was discussed with the patient and his who is at bedside. Time with Patient: Less than 30
[2022-11-15] MEDS ORDERED: ACETAMINOPHEN TAB 325 MG TAB PO PRN (16:07)
[2022-11-15 16:08] VITALS: BP 115/67; PULSE 89; RESP 18; TEMP 98
--- NOTE | 2022-11-15 16:19 | CA ---
Transthoracic Echo Report Name: Shady Sykes Age: 57 Gender: M : 1965 Exam Date: 11/15/2022 08:30 Exam Location: [place] [facility] Ht (in): 69 Wt (lb): 165 Ordering Physician: Krzysztof Westbrook MD Attending/Referring Phys: Sheet Taker Meka Solares [facility] Procedure CPT: Indications: stroke Cardiac Hx: Technical Quality: Fair Contrast 1: Total Dose (mL): Contrast 2: Total Dose (mL): MEASUREMENTS (Male / Female) Normal Values 2D ECHO LV Diastolic Diameter PLAX 4.2 cm 4.2 - 5.9 / 3.9 - 5.3 cm LV Systolic Diameter PLAX 2.3 cm IVS Diastolic Thickness 1.0 cm 0.6 - 1.0 / 0.6 - 0.9 cm LVPW Diastolic Thickness 1.1 cm 0.6 - 1.0 / 0.6 - 0.9 cm LV Relative Wall Thickness 0.5 RV Internal Dim ED PLAX 2.5 cm M-MODE Aortic Root Diameter MM 2.8 cm LA Systolic Diameter MM 3.4 cm LA Ao Ratio MM 1.2 AV Cusp Separation MM 2.0 cm DOPPLER AV Peak Velocity 165.5 cm/s AV Peak Gradient 11.0 mmHg AV Mean Velocity 110.3 cm/s AV Mean Gradient 5.3 mmHg AV Velocity Time Integral 31.7 cm LVOT Peak Velocity 157.7 cm/s LVOT Peak Gradient 10.0 mmHg LVOT Velocity Time Integral 30.3 cm Mitral E Point Velocity 104.7 cm/s Mitral A Point Velocity 96.6 cm/s Mitral E to A Ratio 1.1 MV Deceleration Time 235.7 ms LV E' Lateral Velocity 8.5 cm/s Mitral E to LV E' Lateral Ratio 12.3 LV E' Septal Velocity 8.3 cm/s Mitral E to LV E' Septal Ratio 12.6 TR Peak Velocity 199.2 cm/s TR Peak Gradient 15.9 mmHg Right Atrial Pressure 3.0 mmHg Pulmonary Artery Systolic Pressu 18.9 mmHg Right Ventricular Systolic Press 18.9 mmHg FINDINGS Left Ventricle Mildly increased left ventricular wall thickness. Left ventricular cavity size normal. No obvious regional wall motion abnormalities. Left ventricular ejection fraction is estimated at 60-65%. Right Ventricle Normal right ventricular size and function. Right ventricular systolic pressure within normal limits. Right Atrium Normal right atrial size. Left Atrium Normal left atrial size. Mitral Valve Structurally normal mitral valve. No mitral stenosis, regurgitation or prolapse. Aortic Valve Trileaflet aortic valve. No aortic valve stenosis or regurgitation. Tricuspid Valve Structurally normal tricuspid valve. Trace tricuspid regurgitation. Pulmonic Valve Structurally normal pulmonic valve. Trace pulmonic regurgitation. Pericardium No pericardial effusion. Aorta Normal size aortic root and proximal ascending aorta. CONCLUSIONS Left ventricular ejection fraction 60-65% Mild increased left ventricular wall thickness RVSP 19 No mitral regurgitation Trace tricuspid regurgitation Previewed by: Dr. Mendoza Tejeda DO (Electronically Signed) Final Date: 15 November 2022 16:18
== END 2022-11-15 18:40 | disposition short-term general hospital (02) | DRG 64 ==
LOC: EC 13:16 → 3SCARD 20:04
PROVIDERS: ADMIT Family Medicine; ATTEND Family Medicine
DX: I63.89 Other cerebral infarction (principal); Q28.3 Other malformations of cerebral vessels; G81.94 Hemiplegia, unspecified affecting left nondominant side; I69.351 Hemiplegia and hemiparesis following cerebral infarction affecting right dominant side; R47.01 Aphasia; F01.50 Vascular dementia, unspecified severity, without behavioral disturbance, psychotic disturbance, mood disturbance, and anxiety; F17.210 Nicotine dependence, cigarettes, uncomplicated; I10 Essential (primary) hypertension; Z71.6 Tobacco abuse counseling; E78.5 Hyperlipidemia, unspecified; R47.81 Slurred speech; E03.9 Hypothyroidism, unspecified; Z79.51 Long term (current) use of inhaled steroids; Z79.82 Long term (current) use of aspirin; Z79.899 Other long term (current) drug therapy; Z82.49 Family history of ischemic heart disease and other diseases of the circulatory system
CPT/HCPCS: 36415; 70450; 70496; 70544; 70551; 71046; 71275; 80053; 80061; 81003; 83036; 83605; 83735; 83880; 84443; 84484; 85025; 85379; 85610; 85730; 93005; 93306; 94640; 94760; 99285

== ENCOUNTER → 2023-01-15 | Outpatient (CLI) | payer MEDICARE, OTHER ==
--- NOTE | 2023-01-18 17:19 | MR ---
EXAMINATION TYPE: MR liver wo/w con DATE OF EXAM: 01/15/2023 8:56 PM INDICATION: Patient age:Male; 57 years old; Reason for study: E80.7 DISORDER OF BILIRUBIN METABOLISM, UNSPECIFIE. Elevated bilirubin levels COMPARISON: None TECHNIQUE: Multiplanar multi-sequence imaging was performed without contrast. Post contrast imaging was performed. Post IV contrast subtraction images were also submitted for review. IV Contrast: 8 cc Gadavist FINDINGS: LOWER CHEST: No gross irregularity. ABDOMEN Liver: No evidence for steatosis or cirrhosis. High T2 lesion in the right hepatic lobe posteriorly measuring 28 x 21 mm with some septations which have been present. Demonstrates peripheral nodular discontinuous enhancement on delayed imaging. Left hepatic lobe high T2 signal lesions measuring 8 and 5 mm series 701 image 49 and 51 respectively . New lesions demonstrate flash filling and delayed imaging which persists. No suspicious liver observation. Gallbladder and Bile ducts: Gallbladder is nondistended. The common bile duct and common hepatic duct are within normal limits for size. No evidence for filling defect, stricture or dilation Pancreas: Main pancreatic duct is not dilated. Spleen: Unremarkable. Adrenal glands: Unremarkable. Kidneys: No evidence for hydronephrosis there is subcentimeter nonenhancing lesions likely representi ng cysts bilaterally. Stomach and Bowel: Unremarkable as visualized. Peritoneum: No evidence of pneumoperitoneum or free fluid. Vasculature: Unremarkable. No aortic aneurysm. Musculoskeletal: The osseous structures appear intact. Lymph Nodes: No gross evidence for lymphadenopathy. Abdominal wall: Electronic device in the anterior left lower chest wall compatible loop recorder on p briseyda film imaging. IMPRESSION: No evidence for ductal dilation, stricture or choledocholithiasis. Acute abnormality involving the li francia. There are bilateral hepatic lobe arterial phase enhancing lesions most compatible with hepatic h emangiomas. No suspicious liver observation.
== END | disposition home or self-care (01) ==
LOC: RADMRIMAIN 18:41
PROVIDERS: ATTEND Family Medicine
DX: E80.7 Disorder of bilirubin metabolism, unspecified (principal); K76.9 Liver disease, unspecified
CPT/HCPCS: 74183; A9585

== ENCOUNTER 2024-10-05 10:00 | Day surgery (SDC) | payer MEDICARE, OTHER ==
[2024-10-02 11:21] VITALS: BMI 24.6
[~2024-10-05 10:00] MED LIST changes: +LIDOCAINE 1% (10MG/ML) FOR IV START INTRADERMA PRN; -SODIUM CHLORIDE 0.9% 1,000 ML IV SCH
[2024-10-05] MEDS: IV FLUID CONTINUATION 1,000 ML IV ONE (10:51)
[2024-10-05 10:56] VITALS: RESP 16; TEMP 97.7
[2024-10-05] MEDS: LACTATED RINGERS 1,000 ML IV SCH (11:16)
[2024-10-05] MEDS ORDERED: PROPOFOL 10 MG/ML 20 ML VIAL IV ONE (11:19)
[2024-10-05 12:22] VITALS: BP 151/85; PULSE 62
--- NOTE | 2024-10-05 15:06 | P.OP ---
Date of Procedure: 10/05/24 Preoperative Diagnosis: Screening Colonoscopy Postoperative Diagnosis: Colon Polyps Procedure(s) Performed: Colonoscopy with Polypectomy Anesthesia: NIK Surgeon: Brandt Schrader Pathology: other (3 Colon Polyps) Condition: stable Disposition: PACU Description of Procedure: After informed consent was obtained, the patient was placed in the left lateral position and the patient was sedated. Monitoring was provided throughout the entire procedure. Digital rectal exam was performed revealing normal sphincter tone and no external hemorrhoids. The colonoscope was inserted into rectum and advanced under direct visualization, without difficulty, to the cecum, where the cecal strap, appendiceal orifice, and the ileocecal valve were identified. The quality of the preparation was good. The colonoscope was then withdrawn while carefully examining the mucosa. The colonic mucosa appeared normal with normal vascularity and haustral markings. No masses, AVM/s or diverticula were seen. Hot snare polypectomy was performed for 3 separate colon polyps in the sigmoid colon. The endoscope was removed and the procedure terminated. The patient tolerated the procedure well without complications. Patient should have repeat colonoscopy in 1 year
== END 2024-10-05 12:36 | disposition home or self-care (01) ==
LOC: ORWHC2ENDO 10:00
PROVIDERS: ATTEND Surgery
DX: Z12.11 Encounter for screening for malignant neoplasm of colon (principal); D12.5 Benign neoplasm of sigmoid colon; E78.5 Hyperlipidemia, unspecified; I10 Essential (primary) hypertension; J44.9 Chronic obstructive pulmonary disease, unspecified; M54.50 Low back pain, unspecified; Z87.891 Personal history of nicotine dependence; Z99.89 Dependence on other enabling machines and devices; Z86.69 Personal history of other diseases of the nervous system and sense organs; Z86.73 Personal history of transient ischemic attack (TIA), and cerebral infarction without residual deficits; Z79.899 Other long term (current) drug therapy
CPT/HCPCS: 88305; 45385; J2704